=== PATIENT | female | born 1955 | race Caucasian/White ===

== ENCOUNTER 2017-06-01 07:16 | Day surgery (SDC) | payer OTHER ==
[2017-06-01 08:05] VITALS: BMI 34.0
[2017-06-01] MEDS ORDERED: PROPOFOL 20 ML ONE ×5 (08:05)
[2017-06-01] MEDS ORDERED: LIDOCAINE HCL/PF 2% SDV 5ML VIAL ONE (08:05)
[2017-06-01] MEDS ORDERED: ceFAZolin SODIUM 1 GM VIAL ONE (08:22)
[2017-06-01 09:04] VITALS: TEMP 97.5
[2017-06-01 11:31] VITALS: BP 121/70; PULSE 69
--- NOTE | 2017-06-02 13:46 | PATH ---
Surgical Pathology Report Patient Name: PRINCE KELLY [facility]. Rec. #: [id number] /Age/Gender: 1955 (Age: 61) / F Account: [id number] Location: [facility]-ENDOSCOPY Taken: 06/01/2017 Received: 06/01/2017 Reported: 06/02/2017 Physicians: Oxana Lozano M.D. Specimen(s) Received A: SIGMOID POLYP B: BX RECTAL POLYP Clinical History FREGOSO cirrhosis; history of colon polyp Esophageal vessels, duodenal ulcer, portal gastropathy, diverticulosis, colon polyps Final Diagnosis A. COLON, SIGMOID, POLYP, POLYPECTOMY: HYPERPLASTIC POLYP WITH CAUTERY ARTIFACT. B. RECTUM, POLYP, BIOPSY: HYPERPLASTIC POLYP WITH SERRATED ARCHITECTURE AND FOCAL FEATURES OF MUCOSAL PROLAPSE. Electronically Signed Seth Mclaughlin M.D. Gross Description A. Received in formalin, labeled "hot snare-sigmoid polyp" is a single fragment of brownlee tissue 0.2 cm in greatest dimension. Submitted entirely in one cassette. B. Received in formalin, labeled "biopsy rectal polyp" is a single fragment of brownlee tissue 0.4 cm in greatest dimension. submitted entirely in one cassette. AF/06/01/2017 final/06/01/2017
== END 2017-06-01 11:31 | disposition home or self-care (01) ==
LOC: JASU-ENDO 07:16
PROVIDERS: ATTEND Internal Medicine Gastroenterology
PROC: 0DBP8ZX Excision of Rectum, Via Natural or Artificial Opening Endoscopic, Diagnostic (ICD-10-PCS; 2017-06-01)
PROC: 0DJ08ZZ Inspection of Upper Intestinal Tract, Via Natural or Artificial Opening Endoscopic (ICD-10-PCS; 2017-06-01)
PROC: 0DBN8ZX Excision of Sigmoid Colon, Via Natural or Artificial Opening Endoscopic, Diagnostic (ICD-10-PCS; principal; 2017-06-01 08:00)
DX: Z86.010 Personal history of colon polyps (principal); D12.5 Benign neoplasm of sigmoid colon; K62.1 Rectal polyp; K57.30 Diverticulosis of large intestine without perforation or abscess without bleeding; K64.8 Other hemorrhoids; I85.00 Esophageal varices without bleeding; K76.6 Portal hypertension; K31.89 Other diseases of stomach and duodenum; K26.9 Duodenal ulcer, unspecified as acute or chronic, without hemorrhage or perforation; K31.7 Polyp of stomach and duodenum
CPT/HCPCS: 88305-TC

== ENCOUNTER 2018-09-24 06:04 | Day surgery (SDC) | payer OTHER ==
[2018-09-23 11:28] VITALS: BMI 35.3
[2018-09-24] MEDS ORDERED: EPINEPHrine 1:1,000 1 MG/1 ML - 30ML VIAL (INJECTION) ONE (07:11)
[2018-09-24] MEDS ORDERED: BUPIVACAINE HCL/PF 2.5 MG/ML - 30 ML VIAL IJ ONE (07:11)
[2018-09-24] MEDS ORDERED: PROPOFOL 20 ML ONE ×2 (07:16)
[2018-09-24] MEDS ORDERED: MIDAZOLAM HCL 2 MG/2 ML SINGLE DOSE VIAL ONE (07:16)
[2018-09-24] MEDS ORDERED: LIDOCAINE HCL/PF 2% SDV 5ML VIAL ONE (07:16)
[2018-09-24] MEDS ORDERED: SUCCINYLCHOLINE CHLORIDE 200 MG/10 ML VIAL ONE (07:16)
[2018-09-24] MEDS ORDERED: DESFLURANE GAS 240 ML BOTTLE IH ONE (07:18)
[2018-09-24] MEDS ORDERED: SEVOFLURANE 250 ML BTL ONE (08:20)
[2018-09-24] MEDS ORDERED: PROMETHAZINE HCL 25 MG/1 ML VIAL IVPUSH PRN (09:01)
[2018-09-24] MEDS ORDERED: oxyCODONE HCL 5 MG TABLET PO PRN (09:01)
[2018-09-24] MEDS ORDERED: ONDANSETRON 4 MG/2 ML VIAL IVPUSH PRN (09:01)
[2018-09-24] MEDS ORDERED: LACTATED RINGERS SOLUTION 1,000 ML IV SCH (09:15)
[2018-09-24 10:40] VITALS: PULSE 70; TEMP 97.8
[2018-09-24 11:52] VITALS: BP 140/80
--- NOTE | 2018-09-26 11:59 | OP ---
DATE OF OPERATION: 09/24/2018 SURGEON: Tyree Alberto MD SENIOR SALES CONSULTANT: SUE Espinoza PREOPERATIVE DIAGNOSES: 1. Right knee medial and lateral meniscal tear. 2. Right knee cartilage injury. 3. Right knee synovitis. POSTOPERATIVE DIAGNOSES: 1. Right knee medial and lateral meniscal tear. 2. Right knee cartilage injury. 3. Right knee synovitis. PROCEDURE: 1. Right knee arthroscopy with partial meniscectomy, medial and lateral meniscus; CPT code 45955. 2. Right knee arthroscopy with chondroplasty and abrasionplasty; CPT code 53786. 3. Right knee arthroscopy with synovectomy; CPT code 83791. FINDINGS: 1. Medial meniscus with body and posterior horn tear. 2. Lateral meniscus with posterior 1/3 tear with extensive complex tearing. 3. Synovitis of the patellofemoral and medial and lateral notch areas. 4. Grade 2 to 3 cartilage injury of the medial and tibial plateau. 5. ACL and PCL intact. 6. Diffuse grade 2 to 4 cartilage injury of the lateral femoral condyle and tibial plateau. 7. Diffuse grade 2 to 4 cartilage injury of the patellofemoral trochlea. PROCEDURE: Informed consent was obtained. The patient came to the operating room, where the lower extremity was prepped and draped in a sterile fashion. A tourniquet was placed on the upper thigh, but not inflated. Using standard arthroscopic technique, a lateral incision and portal was made to allow for introduction of the camera into the suprapatellar bursa. This was then taken to the medial joint line, where under direct visualization, a medial incision and portal was made. Excessive synovium noted in the medial, lateral and patellofemoral and notch area was removed by an upbiter, shaver and Bovie cautery. This was found to bring in inflammatory tissue into the joint surface, a source of pain and dysfunction. Probing of the medial and lateral meniscus found tears, as described in the findings. These were removed with the upbiter and shaver and taken back to a stable rim. Grade 2 to 3 degenerative changes were treated with a chondroplasty, removing all flaking surfaces with low-setting Bovie along the periphery to prevent further flaking. Grade 4 changes, as noted, were treated with an abrasionplasty, creating a bleeding surface at the bone/cartilage interface. Aggressive debridement with shaver/kalen created bleeding surface. Micro fracture also done when indicated in findings. All areas of the knee were once again reexamined. The knee was then drained and a single suture was placed in all portals. A sterile dressing was placed and the patient was transferred to the recovery room without complication. TYREE ALBERTO M.D. [id number]
--- NOTE | 2018-10-01 12:11 | PATH ---
Surgical Pathology Report Patient Name: PRINCE KELLY [facility]. Rec. #: [id number] /Age/Gender: 1955 (Age: 63) / F Account: [id number] Location: [facility] Taken: 09/24/2018 Received: 09/24/2018 Reported: 10/01/2018 Physicians: Tyree Bains M.D. Specimen(s) Received RIGHT KNEE SHAVINGS Clinical History Right knee arthritis Final Diagnosis Knee, right, arthroscopic shavings: Fibrosynovial tissue, fibrocollagenous tissue and cartilage. Electronically Signed Spring Richardson M.D. Gross Description Received in formalin, labeled "right knee shavings," is a 4.5 x 4.3 x 0.4 cm. aggregate of brownlee-yellow soft tissue fragments. A school admissions representative portion is submitted in one cassette. /09/24/201809/24/2018
== END 2018-09-24 11:45 | disposition home or self-care (01) ==
LOC: FASU 06:04
PROVIDERS: ATTEND Orthopaedic Surgery
PROC: 0SBC4ZZ Excision of Right Knee Joint, Percutaneous Endoscopic Approach (ICD-10-PCS; 2018-09-24)
PROC: 0SBC4ZZ Excision of Right Knee Joint, Percutaneous Endoscopic Approach (ICD-10-PCS; 2018-09-24)
PROC: 0SBC4ZZ Excision of Right Knee Joint, Percutaneous Endoscopic Approach (ICD-10-PCS; principal; 2018-09-24 07:30)
DX: S83.241A Other tear of medial meniscus, current injury, right knee, initial encounter (principal); S83.281A Other tear of lateral meniscus, current injury, right knee, initial encounter; S83.8X1A Sprain of other specified parts of right knee, initial encounter; M65.861 Other synovitis and tenosynovitis, right lower leg; X58.XXXA Exposure to other specified factors, initial encounter; Y93.9 Activity, unspecified; Y92.9 Unspecified place or not applicable
CPT/HCPCS: 82962; 88304-TC; 94760

== ENCOUNTER 2019-08-01 07:04 | Day surgery (SDC) | payer OTHER ==
[2019-08-01 07:58] VITALS: BMI 33.6
[2019-08-01 09:19] VITALS: TEMP 97.6
[2019-08-01 09:20] VITALS: PULSE 71
[2019-08-01 09:37] VITALS: BP 129/74
--- NOTE | 2019-08-02 17:22 | PATH ---
Surgical Pathology Report Patient Name: PRINCE KELLY [facility]. Rec. #: [id number] /Age/Gender: 1955 (Age: 64) / F Account: [id number] Location: U-ENDOSCOPY Taken: 08/01/2019 Received: 08/01/2019 Reported: 08/02/2019 Physicians: Oxana Lozano M.D. Specimen(s) Received A: TRANSVERSE COLON POLYP B: CECAL POLYP Clinical History Varices, adenoma surveillance Postoperative diagnosis: Portal gastropathy, colon polyp, diverticulosis Final Diagnosis A. TRANSVERSE COLON, POLYP, BIOPSY: HYPERPLASTIC POLYP. B. CECAL POLYP, BIOPSY: TUBULAR ADENOMA. Electronically Signed Arabella Torres M.D. Gross Description A. Received in formalin, labeled "transverse colon polyp" is a brownlee, irregular portion of soft tissue measuring 0.2 cm. in greatest dimension. The specimen is submitted in toto in one cassette. B. Received in formalin, labeled "cecal polyp" are 4 brownlee, irregular portions of soft tissue measuring 0.1 and 0.2 cm. in greatest dimension. The specimens are submitted in toto in one cassette. MLSZ/08/01/2019 sanml/08/01/2019
== END 2019-08-01 10:02 | disposition home or self-care (01) ==
LOC: JASU-ENDO 07:04
PROVIDERS: ATTEND Internal Medicine Gastroenterology
PROC: 0DBL8ZX Excision of Transverse Colon, Via Natural or Artificial Opening Endoscopic, Diagnostic (ICD-10-PCS; 2019-08-01)
PROC: 0DJ08ZZ Inspection of Upper Intestinal Tract, Via Natural or Artificial Opening Endoscopic (ICD-10-PCS; 2019-08-01)
PROC: 0DBH8ZX Excision of Cecum, Via Natural or Artificial Opening Endoscopic, Diagnostic (ICD-10-PCS; principal; 2019-08-01 08:00)
DX: Z12.11 Encounter for screening for malignant neoplasm of colon (principal); Z86.010 Personal history of colon polyps; D12.0 Benign neoplasm of cecum; D12.3 Benign neoplasm of transverse colon; K64.8 Other hemorrhoids; K57.30 Diverticulosis of large intestine without perforation or abscess without bleeding; K31.7 Polyp of stomach and duodenum; K76.6 Portal hypertension; K31.89 Other diseases of stomach and duodenum; D64.9 Anemia, unspecified; E66.9 Obesity, unspecified; I10 Essential (primary) hypertension
CPT/HCPCS: 82962; 88305-TC

== ENCOUNTER 2019-09-15 20:06 | Emergency (ER) | payer OTHER ==
--- NOTE | 2019-09-15 20:21 | PDOC ---
Rapid Medical Evaluation Chief Complaint: Weakness Time Seen by Provider: 09/15/19 20:16 Medical Evaluation: Allergies Allergy/AdvReac Type Severity Reaction Status Date / Time celecoxib [From Celebrex] Allergy Rash Verified 09/23/18 11:11 DUST Allergy Uncoded 09/23/18 11:11 SEASONAL Allergy Uncoded 09/23/18 11:11 09/15/19 20:17 I have performed a brief in-person evaluation of this patient. The patient presents with a chief complaint of:feeling faint with Hx of Hepatic encephalopathy, sent by Dr Mccormack Pertinent physical exam findings: pale, alert but easily I have ordered the following: CBC, CMP, PT,INR The patient will proceed to the ED for further evaluation.
[2019-09-15 20:22] VITALS: BMI 34.2
--- NOTE | 2019-09-15 20:38 | PDOC ---
History of Present Illness - General Chief Complaint: Weakness Stated Complaint: WEAKNESS Time Seen by Provider: 09/15/19 20:16 - History of Present Illness Initial Comments: 09/15/19 20:38 64 y/o female with a h/o DM, HTN, hyperlipidemia, esophageal varices, alcoholic cirrhosis, FREGOSO, HLD, hepatic encephalopathy who presents with 2 weeks of cough productive of clear phlegm, lightheadedness and weakness. She denies fever, nausea, vomiting, abdominal pain, diarrhea, constipation, dysuria, hematuria or any other complaints. She was seen by her PCP who gave her amoxicillin, promethazine, inhaler 4 days ago but she reports that her symptoms have not resovled. She has no other complaints. The patient also reports that she stopped taking her lasix 1 week ago because her legs became less swollen. patient reports that she almost fainted today while going into the elevator ROS GENERAL/CONSTITUTIONAL: No fever or chills. No weakness. CARDIOVASCULAR: No chest pain or shortness of breath RESPIRATORY: + cough, wheezing, or hemoptysis. GASTROINTESTINAL: No nausea, vomiting, diarrhea or constipation. GENITOURINARY: No dysuria, frequency, or change in urination. MUSCULOSKELETAL: No joint or muscle swelling or pain. No neck or back pain. SKIN: No rash PE GENERAL: Awake, alert, and fully oriented, in no acute distress HEAD: No signs of trauma, normocephalic, atraumatic EYES: EOMI, sclera anicteric, conjunctiva clear ENT: oropharynx clear without exudates. dry mucosa NECK: Normal ROM, supple LUNGS: No distress, speaks full sentences, clear to auscultation bilaterally HEART: Regular rate and rhythm, normal S1 and S2, no murmurs, rubs or gallops, peripheral pulses normal and equal bilaterally. ABDOMEN: Soft, nontender. No guarding, no rebound. No masses EXTREMITIES : Normal inspection, Normal range of motion, 2+ pitting edema below the knees. No clubbing or cyanosis. NEUROLOGICAL: Cranial nerves II through XII grossly intact. Normal speech, no focal sensorimotor deficits SKIN: Warm, Dry, normal turgor, no rashes or lesions noted MDM DDX including but not limited to: r/o infectious vs electrolyte derangement chf exacerbation r/o acs W/U: - cbc, cmp, bnp, ammonia, ekg, cxr ED Course: labs with elevated ammonia ekg: nsr at 66bpm with t wave inversion in v1, avr Patient reports that she takes lasix twice a week she does not have a history of chf, likely used for leg swelling leg swelling most likely 2/2 dec albumin from liver cirrhosis patient with negative trop possible pre-synceop patient evaluated by inpatient team felt patient can be discharged after fluid rescuc with outpatient follow up will d/c given f/u instructions and strict return precautions Fani Chang, PGY2 Emergency Medicine Past History - Past Medical History Allergies/Adverse Reactions: Allergies Allergy/AdvReac Type Severity Reaction Status Date / Time celecoxib [From Celebrex] Allergy Rash Verified 09/15/19 20:22 DUST Allergy Uncoded 09/15/19 20:22 SEASONAL Allergy Uncoded 09/15/19 20:22 Home Medications: Ambulatory Orders Simvastatin [Zocor -] 10 mg PO TID 10/29/13 metFORMIN HCL [Glucophage] 1,000 mg PO HS 10/29/13 Ferrous Sulfate [Feosol] 325 mg PO BID #0 ud 11/02/13 Calcium Carbonate [Calcium] 600 mg PO DAILY 04/18/14 Lactobacillus Acidophilus [Acidophilus] 1 tab PO DAILY 04/18/14 Propranolol HCl 20 mg PO BID 04/19/14 Ascorbic Acid [Vitamin C -] 500 mg PO BID 08/02/14 Acetaminophen [Tylenol] 325 mg PO QID PRN 10/27/14 Glyburide [Micronase -] 5 mg PO BID 10/27/14 Saxagliptin HCl [Onglyza] 2.5 mg PO DAILY 12/25/14 Pantoprazole Sodium [Protonix -] 40 mg PO DAILY #30 tablet.ec 06/01/17 Rifaximin [Xifaxan] 550 mg PO BID 09/23/18 Alprazolam [Xanax] 0.25 mg PO PRN PRN 08/01/19 Albuterol Sulfate Inhaler - [Ventolin Hfa Inhaler -] 1 - 2 inh PO QID PRN Amoxicillin - [Amoxicillin 500mg Capsule -] 500 mg PO TID 09/15/19 Benzonatate [Tessalon Pearls -] 100 mg PO TID 09/15/19 Promethazine HCl [Phenergan Liquid -] 5 ml PO TID 09/15/19 Anemia: Yes (tx with Iron infusion) Asthma: No Cancer: No Cardiac Disorders: No CVA: No COPD: No CHF: No Dementia: No Diabetes: Yes (NIDDM) GI Disorders: Yes (COLON POLYPS, ESOPHAGEAL VARICES, PORTAL GASTROPATHY, ULCER) Disorders: No HTN: Yes Hypercholesterolemia: Yes Liver Disease: Yes (FREGOSO CIRRHOSIS) Seizures: No Thyroid Disease: No - Surgical History Abdominal Surgery: No Appendectomy: No Cardiac Surgery: No Cholecystectomy: No Lung Surgery: No Neurologic Surgery: No Orthopedic Surgery: Yes (RT TIBIA/FIBULA FX) - Psycho Social/Smoking Cessation Hx Smoking History: Former smoker Have you smoked in the past 12 months: No If you are a former smoker, when did you quit?: 1971 Information on smoking cessation initiated: No Hx Alcohol Use: No Drug/Substance Use Hx: No Substance Use Type: None Hx Substance Use Treatment: No *Physical Exam - Vital Signs Last Vital Signs Temp Pulse Resp BP Pulse Ox 98.7 F 68 21 H 137/71 99 09/15/19 20:17 09/15/19 20:17 09/15/19 20:17 09/15/19 20:17 09/15/19 20:17 ED Treatment Course - LABORATORY CBC & Chemistry Diagram: 09/15/19 21:05 09/15/19 21:05 Discharge - Discharge Information Problems reviewed: Yes Clinical Impression/Diagnosis: Dehydration Condition: Fair Disposition: HOME - Admission No - Follow up/Referral Referrals: Kwesi Banks MD [Primary Care Provider] - - Patient Discharge Instructions Patient Printed Discharge Instructions: DI for Dehydration -- Adult Additional Instructions: You were seen in the ED for weakness and cough Your labwork and imaging was largely unremarkable You should stop take promethazine Follow up with your Family Doctor Take plenty of liquids Return to the ED if you have worsening shortness of breath, fevers or any other concerning symptoms. - Post Discharge Activity
[2019-09-15] MEDS ORDERED: FUROSEMIDE 40 MG/4 ML INJECTABLE VIAL IVPUSH ONE (21:15)
[2019-09-15 21:24] LABS: BASO % 0.5 % (0-2.0); EOS % 4.9 % (0-4.5); HEMATOCRIT 41.5 % (32.4-45.2); HEMOGLOBIN 13.9 GM/dL (10.7-15.3); LYMPH % 21.7 % (8-40); MCH 32.8 pg (25.7-33.7); MCHC 33.6 g/dl (32.0-36.0); MEAN CELL VOLUME 97.8 fl (80-96); MEAN PLT VOLUME 8.7 fl (7.5-11.1); MONO % 12.4 % (3.8-10.2); NEUT % 60.5 % (42.8-82.8); PLATELET COUNT 66 K/MM3 (134-434); RBC 4.25 M/mm3 (3.60-5.2); RDW 14.7 % (11.6-15.6); WHITE BLOOD COUNT 4.9 K/mm3 (4.0-10.0)
[2019-09-15 21:37] LABS: INR 1.2 (0.83-1.09); PROTHROMBIN TIME (PATIENT) 14.2 SEC (9.7-13.0)
[2019-09-15 21:40] LABS: ACTIVATED PTT 34.7 SECONDS (25.2-36.5)
[2019-09-15] MEDS ORDERED: FUROSEMIDE 40 MG/4 ML INJECTABLE VIAL ONE (21:50)
[2019-09-15 21:52] LABS: ALBUMIN 3.2 g/dl (3.4-5.0); ALK PHOS 154 U/L (45-117); ANION GAP 5 MMOL/L (8-16); BILIRUBIN,TOTAL 1.2 mg/dL (0.2-1); CHLORIDE 110 mmol/L (98-107); CO2 28 mmol/L (21-32); CREATININE 0.7 mg/dL (0.55-1.3); GLUCOSE,RANDOM 132 mg/dL (74-106); LIPASE 276 U/L (73-393); POTASSIUM 3.7 mmol/L (3.5-5.1); SGOT/AST 46 U/L (15-37); SGPT/ALT 38 U/L (13-61); SODIUM 143 mmol/L (136-145); TOT PROT 7.1 g/dl (6.4-8.2)
[2019-09-15 22:54] LABS: N-TERMINAL BNP 85.9 pg/ml (5-125)
--- NOTE | 2019-09-15 23:19 | PDOC ---
Attending Attestation - Resident Resident Name: Fani Chang - ED Attending Attestation I have performed the following: I have examined & evaluated the patient, The case was reviewed & discussed with the resident, I agree w/resident's findings & plan, Exceptions are as noted - HPI HPI: 09/15/19 23:14 64 yo F h/o cirrhosis, esophageal varices, hepatic encephalopathy, htn dm here wtih c/o generalized weakness, cough, and nasal congestion for 2 weeks. pt states she was seen by her primary doctor and started amoxicillin , inhaler, and promethazine 3 days ago. cough nonproductive. today she was getting out of car and suddenly felt weak, like was about to faint, and legs were weak. no f/c no improvement on abx. no cp is on lasix for leg swelling. noted dry mouth. no n/v. works as teacher in a preschool - Physicial Exam PE: 09/15/19 23:18 awake alert dry mucous membranes. lungs clear no wheeze no crackles. heart rrr no mrg abd soft nt nd ext wwp. bilat pitting edema. 2+ alert oriented x 3. no assterixis. - Medical Decision Making 09/15/19 23:19 64 yo F h/o encephalopathy, cirrhoiss, variceas. on abx for bronchitis here with fatigue persistant cough x 2 weeks and near syncopal episode. differential anemia, gi bleed, electrolyte abnormality. se of promethazine, renal failure. pneumonia. plan cxr labs ekg, trop pt ammonia elevated. labs otherwise unremarkable. ekg normal no st elevation or ddepression. left axis. 09/16/19 01:36 pt was given ivf. d/w patient regarding admission for near syncope concerns for intravascular dehydration. pt has been on lasix recently for leg edema. d/w admitting team. DR Laguerre evaluated pt in ed. disagree with admission. will dc home and fu pcp. Heart Score/ECG Review #1 General ECG Interpretation: Sinus Rhythm, Normal Rate (66), Normal Intervals, No acute ischemic changes (66) Compared to previous ECG there are: Other (left axis.)
[2019-09-16] MEDS ORDERED: SODIUM CHLORIDE 0.9% 1000 ML INFUS.BAG IV ONE (00:29)
[2019-09-16 01:27] LABS: URINE APPEARANCE CLEAR; URINE BILIRUBIN NEGATIVE (NEGATIVE); URINE COLOR YELLOW; URINE GLUCOSE (UA) NEGATIVE (NEGATIVE); URINE KETONE NEGATIVE (NEGATIVE); URINE LEUK ESTERASE NEGATIVE (NEGATIVE); URINE NITRITE NEGATIVE (NEGATIVE); URINE PROTEIN NEGATIVE (NEGATIVE)
--- NOTE | 2019-09-16 01:36 | CONSULT ---
Consultation: REQUESTING PROVIDER: Dr Hughes CONSULT REQUEST: We have been asked to medically evaluate this patient for ( specify). HISTORY OF PRESENT ILLNESS: 64 y/o female with a h/o DM, HTN, hyperlipidemia, esophageal varices, alcoholic cirrhosis, FREGOSO, HLD, hepatic encephalopathy who presents with 2 weeks of cough productive of clear phlegm, lightheadedness and weakness. She denies headache, dizziness,LOC, fever, nausea, vomiting, abdominal pain, diarrhea, constipation, dysuria, hematuria or any other complaints. She was seen by her PCP who gave her amoxicillin, promethazine, inhaler 4 days ago but she reports that her symptoms mildly improved. Pt did stop using her lasix week or so ago as her leg swelling had improved and she was urinating too frequently. REVIEW OF SYSTEMS: CONSTITUTIONAL: malaise Absent: fever, chills, diaphoresis, generalized weakness, loss of appetite, weight change HEENT: Absent: rhinorrhea, nasal congestion, throat pain, throat swelling, difficulty swallowing, mouth swelling, ear pain, eye pain, visual changes CARDIOVASCULAR: Absent: chest pain, syncope, palpitations, irregular heart rate, lightheadedness , peripheral edema RESPIRATORY: cough productive of clear sputum Absent: shortness of breath, dyspnea with exertion, orthopnea, wheezing, stridor , hemoptysis GASTROINTESTINAL: Absent: abdominal pain, abdominal distension, nausea, vomiting, diarrhea, constipation, melena, hematochezia GENITOURINARY: Absent: dysuria, frequency, urgency, hesitancy, hematuria, flank pain, genital pain MUSCULOSKELETAL: Absent: myalgia, arthralgia, joint swelling, back pain, neck pain SKIN: Absent: rash, itching, pallor HEMATOLOGIC/IMMUNOLOGIC: Absent: easy bleeding, easy bruising, lymphadenopathy, frequent infections ENDOCRINE: Absent: unexplained weight gain, unexplained weight loss, heat intolerance, cold intolerance NEUROLOGIC: Absent: headache, focal weakness or paresthesias, dizziness, unsteady gait, seizure, mental status changes, bladder or bowel incontinence PSYCHIATRIC: Absent: anxiety, depression, suicidal or homicidal ideation, hallucinations. PHYSICAL EXAMINATION Vital Signs - 24 hr 09/15/19 09/15/19 20:17 21:05 Temperature 98.7 F Pulse Rate 68 Respiratory 21 H Rate Blood Pressure 137/71 O2 Sat by Pulse 99 99 Oximetry (%) GENERAL: Awake, alert, and fully oriented, in no acute distress. HEAD: Normal with no signs of trauma. EYES: Pupils equal, round and reactive to light, extraocular movements intact, sclera anicteric, conjunctiva clear. No lid lag. EARS, NOSE, THROAT: oropharynx clear without exudates. dry mucous membranes. NECK: Normal range of motion, supple without lymphadenopathy, JVD, or masses. LUNGS: Breath sounds equal, clear to auscultation bilaterally. No wheezes, and no crackles. No accessory muscle use. HEART: Regular rate and rhythm, normal S1 and S2 without murmur, rub or gallop. ABDOMEN: Soft, nontender, not distended, normoactive bowel sounds, no guarding, no rebound, no masses. No hepatomegaly or splenomegaly. LOWER EXTREMITIES: 2+ pulses, warm, well-perfused. No calf tenderness. peripheral edema. PSYCHIATRIC: Cooperative. Good eye contact. Appropriate mood and affect. SKIN: Warm, dry, normal turgor, venous stasis skin changes Laboratory Results - last 24 hr 09/15/19 09/15/19 09/15/19 21:05 21:05 21:05 WBC 4.9 RBC 4.25 Hgb 13.9 Hct 41.5 D MCV 97.8 H MCH 32.8 D MCHC 33.6 RDW 14.7 D Plt Count 66 L D MPV 8.7 Absolute Neuts (auto) 2.9 Neutrophils % 60.5 Lymphocytes % 21.7 D Monocytes % 12.4 H Eosinophils % 4.9 H D Basophils % 0.5 Nucleated RBC % 0 PT with INR 14.20 H INR 1.20 H PTT (Actin FS) 34.7 Sodium 143 Potassium 3.7 Chloride 110 H Carbon Dioxide 28 Anion Gap 5 L BUN 15.0 Creatinine 0.7 Est GFR (CKD-EPI)AfAm 105.38 Est GFR (CKD-EPI)NonAf 90.92 Random Glucose 132 H Calcium 9.0 Total Bilirubin 1.2 H AST 46 H ALT 38 Alkaline Phosphatase 154 H Ammonia Troponin I < 0.02 B-Natriuretic Peptide 85.9 Total Protein 7.1 Albumin 3.2 L Lipase 276 Urine Color Urine Appearance Urine pH Ur Specific [place] Urine Protein Urine Glucose (UA) Urine Ketones Urine Blood Urine Nitrite Urine Bilirubin Urine Urobilinogen Ur Leukocyte Esterase 09/15/19 09/16/19 21:05 01:05 WBC RBC Hgb Hct MCV MCH MCHC RDW Plt Count MPV Absolute Neuts (auto) Neutrophils % Lymphocytes % Monocytes % Eosinophils % Basophils % Nucleated RBC % PT with INR INR PTT (Actin FS) Sodium Potassium Chloride Carbon Dioxide Anion Gap BUN Creatinine Est GFR (CKD-EPI)AfAm Est GFR (CKD-EPI)NonAf Random Glucose Calcium Total Bilirubin AST ALT Alkaline Phosphatase Ammonia 62.10 H Troponin I B-Natriuretic Peptide Total Protein Albumin Lipase Urine Color Yellow Urine Appearance Clear Urine pH 7.0 Ur Specific [place] 1.007 L Urine Protein Negative Urine Glucose (UA) Negative Urine Ketones Negative Urine Blood Negative Urine Nitrite Negative Urine Bilirubin Negative Urine Urobilinogen 1.0 Ur Leukocyte Esterase Negative ASSESSMENT/PLAN: 64 y/o female with a h/o DM, HTN, hyperlipidemia, esophageal varices, alcoholic cirrhosis, FREGOSO, HLD, hepatic encephalopathy who presents with 2 weeks of cough productive of clear phlegm, lightheadedness and weakness. Patient ambulating without difficulty in the ED. AAOx3. back to her baseline according to patient. Labs and imaging were reviewed EKG was unremarkable Pt showed signs of dehydration on physical exam and lightheadedness seemed to be orthostatic in origin; will give one liter of NS and patient can be discharged home with close follow up with her PCP and to return if her symptoms recur or syncope Visit type - Emergency Visit Emergency Visit: Yes Care time: The patient presented to the Emergency Department on the above date and was hospitalized for further evaluation of their emergent condition. - New Patient This patient is new to me today: Yes Date on this admission: 09/16/19 - Critical Care Critical Care patient: No ATTENDING PHYSICIAN STATEMENT I saw and evaluated the patient. I reviewed the resident's note and discussed the case with the resident. I agree with the resident's findings and plan as documented. SUBJECTIVE: OBJECTIVE: ASSESSMENT AND PLAN:
--- NOTE | 2019-09-16 02:04 | PN ---
Teaching Attending Note Name of Resident: Brandee Conti ATTENDING PHYSICIAN STATEMENT I saw and evaluated the patient. I reviewed the resident's note and discussed the case with the resident. I agree with the resident's findings and plan as documented. 64-year-old woman with a history of cirrhosis, esophageal varices, diabetes, hypertension had episode of lightheadedness when attempting to stand up earlier on 09/15. There is no LOC. Denied significant headaches. Complain also of some dry cough which has responded slightly to amoxicillin that her PCP prescribed her. Patient complained of vivid dreams while she was sleeping. She was found to be ambulating around the emergency room without any problems. She is alert and oriented and gives a good history. Glucose and electrolytes were within normal limits. EKG was noted to have sinus rhythm without any arrhythmias. Chest x-ray appeared clear. Lungs were clear to auscultation bilaterally. Suspect orthostatic component. Patient is receiving gentle IV fluid hydration in the emergency room, suggested p.o. hydration at home as she was likely intravascularly depleted. At this time I believe patient is safe for discharge home with early follow-up with PCP. I advised patient to return immediately to hospital if syncope episode or altered mental status occurs. She verbalized understanding and agreed
[2019-09-16 02:51] VITALS: BP 134/86; PULSE 66; TEMP 98.6
--- NOTE | 2019-09-16 13:56 | EKG ---
Test Reason : Blood Pressure : / mmHG Vent. Rate : 066 BPM Atrial Rate : 066 BPM P-R Int : 138 ms QRS Dur : 094 ms QT Int : 440 ms P-R-T Axes : 059 -15 047 degrees QTc Int : 461 ms NORMAL SINUS RHYTHM POSSIBLE LEFT ATRIAL ENLARGEMENT NON-SPECIFIC INTRA-VENTRICULAR CONDUCTION DELAY ABNORMAL ECG Confirmed by JOSELIN SON MD ([id number]) on 09/16/2019 1:56:19 PM Referred By: Confirmed By:JOSELIN SON MD
== END 2019-09-16 02:52 | disposition home or self-care (01) ==
LOC: JER 20:06
PROC: 3E033GC Introduction of Other Therapeutic Substance into Peripheral Vein, Percutaneous Approach (ICD-10-PCS; principal; 2019-09-15)
DX: E86.0 Dehydration (principal); I10 Essential (primary) hypertension; E11.9 Type 2 diabetes mellitus without complications; E78.5 Hyperlipidemia, unspecified; Z79.84 Long term (current) use of oral hypoglycemic drugs; K75.81 Nonalcoholic steatohepatitis (NASH); K74.60 Unspecified cirrhosis of liver; D64.9 Anemia, unspecified; R60.0 Localized edema; Z87.19 Personal history of other diseases of the digestive system; Z88.8 Allergy status to other drugs, medicaments and biological substances; Z91.048 Other nonmedicinal substance allergy status
CPT/HCPCS: 36415; 71046-TC-FY; 80053; 81003; 82140; 83690; 83880; 84484; 85025; 85610; 85730; 87086; 87186; 93005; 93010; 99284-25; J7030

== ENCOUNTER 2023-03-16 15:06 | Inpatient (IN) | payer OTHER, MEDICARE ==
[2023-03-16] MEDS ORDERED: CEFEPIME HCL/D5W 1 GM/50 ML BAG IVPB ONE (15:53)
[2023-03-16] MEDS ORDERED: VANCOMYCIN 1 GM in D5W (PRE-DOCKED) 1,000 MG/250 ML (RESTRICTED TO ID ONLY IVPB ONE (15:57)
[2023-03-16 16:34] LABS: BASO % 0.5 % (0-2.0); EOS % 6.3 % (0-4.5); HEMOGLOBIN 15.1 GM/dL (10.7-15.3); LYMPH % 17.2 % (8-40); MCH 35.6 pg (25.7-33.7); MCHC 35.2 g/dl (32.0-36.0); MEAN CELL VOLUME 101.3 fl (80-96); MEAN PLT VOLUME 9.1 fl (7.5-11.1); MONO % 11.1 % (3.8-10.2); NEUT % 64.9 % (42.8-82.8); PLATELET COUNT 61 10^3/uL (134-434); RBC 4.25 M/mm3 (3.60-5.2); RDW 15.6 % (11.6-15.6); WHITE BLOOD COUNT 5.8 K/mm3 (4.0-10.0)
[2023-03-16] MEDS ORDERED: CEFEPIME 1 GM/100 ML BAG IVPB ONE (16:41)
[2023-03-16] MEDS ORDERED: VANCOMYCIN/WATER FOR INJ (PEG) 1,000 MG/200 ML BAG IVPB ONE (16:41)
[2023-03-16 17:24] LABS: ERYTHROCYTE SEDIMENTATION RATE 14 mm/hr (0-30)
[2023-03-16 19:52] LABS: CHLORIDE 110 mmol/L (98-107); SODIUM 130 mmol/L (136-145)
[2023-03-16 19:53] LABS: CALCIUM 8.7 mg/dL (8.5-10.1)
[2023-03-16 19:54] LABS: BLOOD UREA NITROGEN 21.1 mg/dL (7-18); CO2 27 mmol/L (21-32); GLUCOSE,RANDOM 136 mg/dL (74-106)
[2023-03-16 19:57] LABS: CREATININE 0.9 mg/dL (0.55-1.3)
[2023-03-16 19:59] LABS: BILIRUBIN,TOTAL 1.3 mg/dL (0.2-1); TOT PROT 7.8 g/dl (6.4-8.2)
[2023-03-16 20:00] LABS: ALK PHOS 177 U/L (45-117)
[2023-03-16 21:53] LABS: POTASSIUM 4.4 mmol/L (3.5-5.1)
[2023-03-16 21:55] LABS: BLOOD UREA NITROGEN 19.3 mg/dL (7-18); CALCIUM 8.9 mg/dL (8.5-10.1)
[2023-03-16 21:58] LABS: CREATININE 0.8 mg/dL (0.55-1.3)
[2023-03-17] MEDS: CLINDAMYCIN 600MG PREMIX IVPB 600 MG/50 ML BAG IVPB SCH ×2 (03:06→11:00)
[2023-03-17 05:38] VITALS: BMI 37.3
[2023-03-17] MEDS: INSULIN SLIDING SCALE (NOVOLOG) 1 VIAL SQ SCH ×4 (06:32→21:59)
[2023-03-17 08:43] LABS: BASO % 0.6 % (0-2.0); EOS % 6.5 % (0-4.5); HEMATOCRIT 38.7 % (32.4-45.2); HEMOGLOBIN 13.6 GM/dL (10.7-15.3); LYMPH % 17.3 % (8-40); MCH 35.5 pg (25.7-33.7); MCHC 35.1 g/dl (32.0-36.0); MEAN CELL VOLUME 101.1 fl (80-96); MEAN PLT VOLUME 8.9 fl (7.5-11.1); MONO % 12.1 % (3.8-10.2); NEUT % 63.5 % (42.8-82.8); PLATELET COUNT 54 10^3/uL (134-434); RBC 3.83 M/mm3 (3.60-5.2); RDW 14.5 % (11.6-15.6); WHITE BLOOD COUNT 4.8 K/mm3 (4.0-10.0)
[2023-03-17 09:03] LABS: POTASSIUM 3.9 mmol/L (3.5-5.1)
[2023-03-17 09:13] LABS: ALBUMIN 2.6 g/dl (3.4-5.0); BLOOD UREA NITROGEN 16.9 mg/dL (7-18); CALCIUM 8.6 mg/dL (8.5-10.1); MAGNESIUM 1.4 mg/dL (1.8-2.4)
[2023-03-17 09:16] LABS: CREATININE 0.7 mg/dL (0.55-1.3); PHOSPHOROUS 3.1 mg/dL (2.5-4.9)
[2023-03-17] MEDS ORDERED: MAGNESIUM SULF 50% (8.12 MEQ/2 ML-1 GM VIAL) IVPB ONE (09:16)
[2023-03-17 09:17] LABS: TOT PROT 5.9 g/dl (6.4-8.2)
[2023-03-17 09:18] LABS: BILIRUBIN,TOTAL 1.8 mg/dL (0.2-1)
[2023-03-17] MEDS: FERROUS SO4 325 MG TABLET (FP) PO SCH (10:08)
[2023-03-17] MEDS: PANTOPRAZOLE 40 MG TABLET PO SCH (10:16)
[2023-03-17] MEDS: ASCORBIC ACID 500 MG TABLET (FP) PO SCH ×2 (10:17→21:58)
[2023-03-17] MEDS: RIFAXIMIN 550 MG TABLET PO SCH ×2 (10:17→21:58)
[2023-03-17] MEDS ORDERED: ACETAMINOPHEN 1000 MG/100 ML BAG IVPB PRN (13:47)
[2023-03-17] MEDS ORDERED: AMPICILLIN NA/SULBACTAM NA 1.5 GM VIAL ONE (14:15)
[2023-03-17] MEDS: ACETAMINOPHEN 325 MG TABLET (FP) PO PRN ×2 (14:20→21:58)
[2023-03-17] MEDS: AMPICILLIN NA/SULBACTAM NA 3 GM in SODIUM CHLORIDE 100 ML IVPB SCH ×2 (14:49→21:57)
[2023-03-17] MEDS ORDERED: AMPICILLIN NA/SULBACTAM NA 1.5 GM in SODIUM CHLORIDE 100 ML IVPB SCH (15:00)
[2023-03-18] MEDS: ATORVASTATIN CA 10 MG TABLET (FP) PO SCH (00:27)
[2023-03-18] MEDS: AMPICILLIN NA/SULBACTAM NA 3 GM in SODIUM CHLORIDE 100 ML IVPB SCH ×4 (03:52→21:06)
[2023-03-18] MEDS ORDERED: glyBURIDE 5 MG TABLET PO SCH (07:00)
[2023-03-18] MEDS ORDERED: SAXAGLIPTIN HCL 2.5 MG PO SCH (07:00)
[2023-03-18] MEDS: INSULIN SLIDING SCALE (NOVOLOG) 1 VIAL SQ SCH (07:55)
[2023-03-18] MEDS ORDERED: AMPICILLIN NA/SULBACTAM NA 1.5 GM VIAL ONE (10:56)
[2023-03-18 11:00] LABS: BASO % 0.7 % (0-2.0); EOS % 6.7 % (0-4.5); HEMATOCRIT 43.1 % (32.4-45.2); HEMOGLOBIN 14.9 GM/dL (10.7-15.3); LYMPH % 15.5 % (8-40); MCH 35.1 pg (25.7-33.7); MCHC 34.6 g/dl (32.0-36.0); MEAN CELL VOLUME 101.3 fl (80-96); MONO % 12.9 % (3.8-10.2); NEUT % 64.2 % (42.8-82.8); PLATELET COUNT 73 10^3/uL (134-434); RBC 4.26 M/mm3 (3.60-5.2); RDW 14.9 % (11.6-15.6); WHITE BLOOD COUNT 5.9 K/mm3 (4.0-10.0)
[2023-03-18] MEDS: ACETAMINOPHEN 325 MG TABLET (FP) PO PRN ×2 (11:03→21:07)
[2023-03-18] MEDS: PANTOPRAZOLE 40 MG TABLET PO SCH (11:04)
[2023-03-18] MEDS: FERROUS SO4 325 MG TABLET (FP) PO SCH (11:04)
[2023-03-18] MEDS: RIFAXIMIN 550 MG TABLET PO SCH ×2 (11:04→21:07)
[2023-03-18 11:10] LABS: POTASSIUM 4.1 mmol/L (3.5-5.1)
[2023-03-18 11:14] LABS: CALCIUM 8.9 mg/dL (8.5-10.1)
[2023-03-18 11:15] LABS: BLOOD UREA NITROGEN 17.6 mg/dL (7-18); MAGNESIUM 1.6 mg/dL (1.8-2.4)
[2023-03-18] MEDS ORDERED: MAGNESIUM SULF 50% (8.12 MEQ/2 ML-1 GM VIAL) IVPB ONE ×2 (11:17→14:45)
[2023-03-18 11:18] LABS: CREATININE 0.7 mg/dL (0.55-1.3); PHOSPHOROUS 3.3 mg/dL (2.5-4.9)
[2023-03-18] MEDS: ASCORBIC ACID 500 MG TABLET (FP) PO SCH ×2 (11:18→21:07)
[2023-03-18 11:19] LABS: TOT PROT 6.8 g/dl (6.4-8.2)
[2023-03-18] MEDS: CHOLECALCIFEROL (VIT D3 5000 UNITS) 125 MCG TAB PO SCH (11:19)
[2023-03-18 11:20] LABS: BILIRUBIN,TOTAL 1.9 mg/dL (0.2-1)
[2023-03-18] MEDS ORDERED: metFORMIN HCL 500 MG TABLET (FP) PO SCH (22:00)
[2023-03-19] MEDS: AMPICILLIN NA/SULBACTAM NA 3 GM in SODIUM CHLORIDE 100 ML IVPB SCH ×4 (02:49→22:53)
[2023-03-19] MEDS: ACETAMINOPHEN 325 MG TABLET (FP) PO PRN ×3 (08:03→22:55)
[2023-03-19] MEDS: FERROUS SO4 325 MG TABLET (FP) PO SCH (09:23)
[2023-03-19] MEDS: RIFAXIMIN 550 MG TABLET PO SCH ×2 (09:23→22:54)
[2023-03-19] MEDS: PANTOPRAZOLE 40 MG TABLET PO SCH (09:23)
[2023-03-19] MEDS: ASCORBIC ACID 500 MG TABLET (FP) PO SCH ×2 (09:23→22:53)
[2023-03-19 10:37] LABS: POTASSIUM 4.4 mmol/L (3.5-5.1)
[2023-03-19 10:41] LABS: CALCIUM 8.4 mg/dL (8.5-10.1)
[2023-03-19 10:42] LABS: ALBUMIN 2.6 g/dl (3.4-5.0); BLOOD UREA NITROGEN 19.1 mg/dL (7-18); MAGNESIUM 1.4 mg/dL (1.8-2.4)
[2023-03-19 10:45] LABS: CREATININE 0.8 mg/dL (0.55-1.3)
[2023-03-19 10:46] LABS: BILIRUBIN,TOTAL 1.5 mg/dL (0.2-1); TOT PROT 6.2 g/dl (6.4-8.2)
[2023-03-19] MEDS ORDERED: MAGNESIUM 2GM/50ML STERILE WATER IVPB IVPB ONE (11:53)
[2023-03-19] MEDS: sitaGLIPtin PHOSPHATE 50 MG TABLET PO SCH (12:33)
[2023-03-19] MEDS ORDERED: SODIUM CHLORIDE 1,000 ML IV SCH (13:45)
[2023-03-20] MEDS: ATORVASTATIN CA 10 MG TABLET (FP) PO SCH (01:49)
[2023-03-20] MEDS: AMPICILLIN NA/SULBACTAM NA 3 GM in SODIUM CHLORIDE 100 ML IVPB SCH ×5 (02:27→23:37)
[2023-03-20] MEDS: sitaGLIPtin PHOSPHATE 50 MG TABLET PO SCH ×2 (06:13→11:45)
[2023-03-20 08:30] LABS: INR 1.17 (0.83-1.09); PROTHROMBIN TIME (PATIENT) 13.6 SEC (9.7-13.0)
[2023-03-20 08:37] LABS: POTASSIUM 4.2 mmol/L (3.5-5.1)
[2023-03-20 08:40] LABS: CALCIUM 8.7 mg/dL (8.5-10.1)
[2023-03-20 08:41] LABS: BLOOD UREA NITROGEN 18.9 mg/dL (7-18); MAGNESIUM 1.6 mg/dL (1.8-2.4)
[2023-03-20 08:44] LABS: CREATININE 0.7 mg/dL (0.55-1.3)
[2023-03-20] MEDS ORDERED: MAGNESIUM SULF 50% (8.12 MEQ/2 ML-1 GM VIAL) IVPB ONE (08:47)
[2023-03-20] MEDS: PANTOPRAZOLE 40 MG TABLET PO SCH (11:28)
[2023-03-20] MEDS: RIFAXIMIN 550 MG TABLET PO SCH ×2 (11:28→21:43)
[2023-03-20] MEDS: ASCORBIC ACID 500 MG TABLET (FP) PO SCH ×2 (11:29→21:43)
[2023-03-20] MEDS: FERROUS SO4 325 MG TABLET (FP) PO SCH (11:29)
[2023-03-20] MEDS: CHOLECALCIFEROL (VIT D3 5000 UNITS) 125 MCG TAB PO SCH (11:31)
[2023-03-20] MEDS: ACETAMINOPHEN 325 MG TABLET (FP) PO PRN (11:45)
[2023-03-20] MEDS ORDERED: sitaGLIPtin PHOSPHATE 50 MG TABLET PO SCH (12:00)
[2023-03-20] MEDS ORDERED: AMPICILLIN NA/SULBACTAM NA 3 GM in SODIUM CHLORIDE 100 ML IVPB SCH (22:30)
[2023-03-21] MEDS ORDERED: AMPICILLIN NA/SULBACTAM NA 3 GM VIAL ONE (01:54)
[2023-03-21] MEDS: AMPICILLIN NA/SULBACTAM NA 3 GM in SODIUM CHLORIDE 100 ML IVPB SCH ×4 (02:08→21:01)
[2023-03-21] MEDS: sitaGLIPtin PHOSPHATE 50 MG TABLET PO SCH (06:02)
[2023-03-21] MEDS: FERROUS SO4 325 MG TABLET (FP) PO SCH (09:36)
[2023-03-21] MEDS: PANTOPRAZOLE 40 MG TABLET PO SCH (09:36)
[2023-03-21] MEDS: RIFAXIMIN 550 MG TABLET PO SCH ×2 (09:36→21:00)
[2023-03-21] MEDS: ASCORBIC ACID 500 MG TABLET (FP) PO SCH ×2 (09:36→21:00)
[2023-03-21] MEDS: ACETAMINOPHEN 325 MG TABLET (FP) PO PRN ×2 (09:38→21:47)
[2023-03-21 10:33] LABS: POTASSIUM 4.3 mmol/L (3.5-5.1)
[2023-03-21 10:39] LABS: CALCIUM 8.6 mg/dL (8.5-10.1)
[2023-03-21 10:40] LABS: BLOOD UREA NITROGEN 22.2 mg/dL (7-18); MAGNESIUM 1.7 mg/dL (1.8-2.4)
[2023-03-21 10:43] LABS: CREATININE 0.8 mg/dL (0.55-1.3)
[2023-03-21 11:01] VITALS: RESP 18
[2023-03-21] MEDS: LACTOBACILLUS ACIDOPHILUS 1 TABLET PO SCH (13:48)
[2023-03-21] MEDS: POVIDONE-IODINE 10% SOLN 118 ML BOTTLE TP SCH (21:05)
[2023-03-22] MEDS ORDERED: AMPICILLIN NA/SULBACTAM NA 3 GM VIAL ONE (01:33)
[2023-03-22] MEDS: AMPICILLIN NA/SULBACTAM NA 3 GM in SODIUM CHLORIDE 100 ML IVPB SCH ×3 (02:53→14:09)
[2023-03-22] MEDS: POVIDONE-IODINE 10% SOLN 118 ML BOTTLE TP SCH ×2 (03:41→11:40)
[2023-03-22] MEDS: sitaGLIPtin PHOSPHATE 50 MG TABLET PO SCH (06:19)
[2023-03-22] MEDS ORDERED: MAGNESIUM SULF 50% (8.12 MEQ/2 ML-1 GM VIAL) IVPB ONE (07:13)
[2023-03-22] MEDS ORDERED: glyBURIDE 5 MG TABLET PO ONE (08:00)
[2023-03-22] MEDS ORDERED: MAGNESIUM OXIDE 400 MG TABLET (FP) PO ONE (08:54)
[2023-03-22] MEDS: RIFAXIMIN 550 MG TABLET PO SCH (09:08)
[2023-03-22] MEDS: LACTOBACILLUS ACIDOPHILUS 1 TABLET PO SCH (09:08)
[2023-03-22] MEDS: PANTOPRAZOLE 40 MG TABLET PO SCH (09:08)
[2023-03-22] MEDS: ASCORBIC ACID 500 MG TABLET (FP) PO SCH (09:08)
[2023-03-22] MEDS: FERROUS SO4 325 MG TABLET (FP) PO SCH (09:08)
[2023-03-22 10:42] VITALS: BP 140/72; PULSE 72; TEMP 98
[2023-03-22] MEDS: ACETAMINOPHEN 325 MG TABLET (FP) PO PRN (15:05)
[2023-03-23] MEDS ORDERED: FUROSEMIDE 20 MG TABLET (FP) PO SCH (10:00)
== END 2023-03-22 17:00 | disposition home or self-care (01) | DRG 603 ==
LOC: JER 15:06 → JERBED 17:50 → OBSVTOIN 03-17 → J6S 03-17 02:08
PROVIDERS: ADMIT Internal Medicine; ATTEND Internal Medicine
PROC: 0X9 Anatomical Regions, Upper Extremities, Drainage (ICD-10-PCS; principal; 2023-03-21)
DX: L03.114 Cellulitis of left upper limb (principal); I10 Essential (primary) hypertension; E78.5 Hyperlipidemia, unspecified; Z79.84 Long term (current) use of oral hypoglycemic drugs; E11.65 Type 2 diabetes mellitus with hyperglycemia; D64.9 Anemia, unspecified; K74.60 Unspecified cirrhosis of liver; E83.42 Hypomagnesemia; W55.01XA Bitten by cat, initial encounter; Y93.89 Activity, other specified; Y92.89 Other specified places as the place of occurrence of the external cause; Y99.8 Other external cause status; R91.1 Solitary pulmonary nodule
CPT/HCPCS: 0241U-QW; 36415; 73090-TC-LT-FY; 73110-TC-LT-FY; 73130-TC-LT-FY; 73218-TC-LT; 80048; 80053; 82962; 83735; 84100; 85025; 85610; 85651; 85730; 86140; 86850; 86900; 86901; 87040; 87070; 87205; 93005; 93010; 93971; 99285-25; G0378

== ENCOUNTER 2024-01-28 12:11 | Inpatient (IN) | payer OTHER, MEDICARE ==
[2024-01-28 13:28] LABS: VENOUS BASE EXCESS -0.4 mmol/L (-2-2); VENOUS O2 SATURATION 70.2 % (70-80); VENOUS PCO2 38.5 mmHg (38-52); VENOUS PH 7.413 (7.310-7.410)
[2024-01-28 13:32] LABS: BASO % 0.7 % (0-2.0); EOS % 3.7 % (0-4.5); HEMATOCRIT 36.1 % (32.4-45.2); HEMOGLOBIN 11.6 GM/dL (10.7-15.3); LYMPH % 23.5 % (8-40); MCH 30.9 pg (25.7-33.7); MCHC 32.2 g/dl (32.0-36.0); MEAN CELL VOLUME 95.9 fl (80-96); MEAN PLT VOLUME 8.5 fl (7.5-11.1); MONO % 8.4 % (3.8-10.2); NEUT % 63.7 % (42.8-82.8); PLATELET COUNT 104 10^3/uL (134-434); RBC 3.76 M/mm3 (3.60-5.2); RDW 15.1 % (11.6-15.6)
[2024-01-28 13:39] LABS: INR 1.25 (0.83-1.09); PROTHROMBIN TIME (PATIENT) 14.5 SEC (9.7-13.0)
[2024-01-28 13:48] LABS: POTASSIUM 4.2 mmol/L (3.5-5.1)
[2024-01-28 13:51] LABS: ALBUMIN 3.2 g/dl (3.4-5.0); BLOOD UREA NITROGEN 38.3 mg/dL (7-18); CALCIUM 9.6 mg/dL (8.5-10.1)
[2024-01-28 13:53] LABS: CREATININE 1.2 mg/dL (0.55-1.3)
[2024-01-28 13:55] LABS: BILIRUBIN,TOTAL 1.8 mg/dL (0.2-1); TOT PROT 7.1 g/dl (6.4-8.2)
[2024-01-28 14:02] LABS: MAGNESIUM 1.8 mg/dL (1.8-2.4)
[2024-01-28 14:14] LABS: ACTIVATED PTT 31.3 SECONDS (25.2-36.5)
[2024-01-28 14:35] LABS: LACTIC ACID 2.2 mmol/L (0.4-2.0)
[2024-01-28] MEDS: SODIUM CHLORIDE 1,000 ML IV STA (15:24)
[2024-01-28 15:33] LABS: EPI CELLS 21 /uL (0-25.1); HYALINE CASTS 1 /uL (0-3.1); URINE APPEARANCE CLEAR; URINE BACTERIA 8 /uL (0-1359); URINE BILIRUBIN NEGATIVE (NEGATIVE); URINE COLOR YELLOW; URINE GLUCOSE (UA) NEGATIVE (NEGATIVE); URINE KETONE TRACE (NEGATIVE); URINE LEUK ESTERASE TRACE (NEGATIVE); URINE NITRITE NEGATIVE (NEGATIVE); URINE PROTEIN NEGATIVE (NEGATIVE); URINE RBC 12 /uL (0-23.9); URINE WBC 12 /uL (0-25.8)
[2024-01-28 15:42] LABS: OPIATES, URI NEGATIVE (NEGATIVE); URINE BARBITURATES NEGATIVE (NEGATIVE)
[2024-01-28 15:43] LABS: METHADONE, UR NEGATIVE (NEGATIVE); PHENCYCLIDINE,URINE NEGATIVE (NEGATIVE); URINE BENZODIAZEPINES NEGATIVE (NEGATIVE)
[2024-01-28] MEDS: LACTULOSE 20 GM/30 ML UDC (FOR ORAL USE ONLY) PO ONE (15:48)
[2024-01-28] MEDS ORDERED: LACTULOSE 20 GM/30 ML UDC (FOR ORAL USE ONLY) ONE (15:48)
[2024-01-28 15:50] LABS: COCAINE, UR NEGATIVE (NEGATIVE); URINE AMPHETAMINES NEGATIVE (NEGATIVE)
[2024-01-28] MEDS: ACETAMINOPHEN 325 MG TABLET (FP) PO ONE (17:24)
[2024-01-28] MEDS ORDERED: ACETAMINOPHEN 325 MG TABLET (FP) ONE (17:24)
[2024-01-28] MEDS ORDERED: [UNRECOGNIZED DRUG - OTHER] TP SCH (20:00)
[2024-01-28] MEDS: SPIRONOLACTONE 25 MG TABLET PO SCH (20:38)
[2024-01-28] MEDS: PANTOPRAZOLE 40 MG TABLET PO SCH (20:39)
[2024-01-28] MEDS: LACTOBACILLUS ACIDOPHILUS 1 TABLET PO SCH (20:39)
[2024-01-28] MEDS: INSULIN ASPART SLIDING SCALE (NOVOLOG) 1 VIAL SQ SCH (20:47)
[2024-01-28 21:01] VITALS: RESP 18; BMI 30.6
[2024-01-28] MEDS: LACTULOSE 20 GM/30 ML UDC (FOR ORAL USE ONLY) PO SCH (23:08)
[2024-01-28] MEDS: ASCORBIC ACID 500 MG TABLET (FP) PO SCH (23:08)
[2024-01-28] MEDS: RIFAXIMIN 550 MG TABLET PO SCH (23:09)
[2024-01-29] MEDS: ACETAMINOPHEN 1000 MG/100 ML BAG IVPB ONE (02:57)
[2024-01-29] MEDS: glyBURIDE 2.5 MG TABLET PO SCH (06:48)
[2024-01-29] MEDS: sitaGLIPtin PHOSPHATE 50 MG TABLET PO SCH (06:48)
[2024-01-29 10:10] LABS: HEMATOCRIT 29.8 % (32.4-45.2); HEMOGLOBIN 9.9 GM/dL (10.7-15.3); MCH 31.7 pg (25.7-33.7); MCHC 33.2 g/dl (32.0-36.0); MEAN CELL VOLUME 95.5 fl (80-96); MEAN PLT VOLUME 8.2 fl (7.5-11.1); PLATELET COUNT 78 10^3/uL (134-434); RBC 3.12 M/mm3 (3.60-5.2); RDW 14.8 % (11.6-15.6); WHITE BLOOD COUNT 4.4 K/mm3 (4.0-10.0)
[2024-01-29 10:22] LABS: POTASSIUM 3.7 mmol/L (3.5-5.1)
[2024-01-29 10:25] LABS: BLOOD UREA NITROGEN 29.6 mg/dL (7-18); CALCIUM 8.7 mg/dL (8.5-10.1); MAGNESIUM 1.7 mg/dL (1.8-2.4)
[2024-01-29 10:26] LABS: ALBUMIN 2.6 g/dl (3.4-5.0)
[2024-01-29 10:28] LABS: PHOSPHOROUS 3.2 mg/dL (2.5-4.9)
[2024-01-29 10:29] LABS: CREATININE 1.1 mg/dL (0.55-1.3)
[2024-01-29 10:30] LABS: BILIRUBIN,TOTAL 1.4 mg/dL (0.2-1); TOT PROT 5.8 g/dl (6.4-8.2)
[2024-01-29] MEDS: FERROUS SO4 325 MG TABLET (FP) PO SCH (10:56)
[2024-01-29] MEDS: ACETAMINOPHEN 500 MG TABLET (FP) PO PRN (17:48)
[2024-01-29] MEDS: MAGNESIUM OXIDE 400 MG TABLET (FP) PO ONE (17:48)
[2024-01-29] MEDS ORDERED: ATORVASTATIN CA 10 MG TABLET (FP) PO SCH (19:47)
[2024-01-29] MEDS: ATORVASTATIN CA 10 MG TABLET (FP) PO SCH (21:59)
[2024-01-29] MEDS: CHOLECALCIFEROL (VIT D3) 5000 UNITS (125 MCG) CAP PO SCH (22:40)
[2024-01-30 09:31] LABS: HEMATOCRIT 35.7 % (32.4-45.2); HEMOGLOBIN 11.7 GM/dL (10.7-15.3); MCH 31.1 pg (25.7-33.7); MCHC 32.7 g/dl (32.0-36.0); MEAN PLT VOLUME 8.9 fl (7.5-11.1); PLATELET COUNT 118 10^3/uL (134-434); RBC 3.76 M/mm3 (3.60-5.2); RDW 15.2 % (11.6-15.6); WHITE BLOOD COUNT 10.8 K/mm3 (4.0-10.0)
[2024-01-30 10:06] LABS: CALCIUM 8.8 mg/dL (8.5-10.1)
[2024-01-30 10:07] LABS: ALBUMIN 2.7 g/dl (3.4-5.0); BLOOD UREA NITROGEN 22.5 mg/dL (7-18)
[2024-01-30 10:10] LABS: PHOSPHOROUS 2.6 mg/dL (2.5-4.9)
[2024-01-30 10:12] LABS: BILIRUBIN,TOTAL 1.6 mg/dL (0.2-1)
[2024-01-30 10:13] LABS: TOT PROT 6.2 g/dl (6.4-8.2)
[2024-01-31 09:11] LABS: BASO % 0.4 % (0-2.0); EOS % 6.9 % (0-4.5); HEMATOCRIT 30.8 % (32.4-45.2); HEMOGLOBIN 10.5 GM/dL (10.7-15.3); LYMPH % 17.3 % (8-40); MCH 32.1 pg (25.7-33.7); MCHC 34.2 g/dl (32.0-36.0); MEAN CELL VOLUME 93.9 fl (80-96); MEAN PLT VOLUME 8.9 fl (7.5-11.1); NEUT % 63.4 % (42.8-82.8); PLATELET COUNT 75 10^3/uL (134-434); RBC 3.28 M/mm3 (3.60-5.2); RDW 14.9 % (11.6-15.6); WHITE BLOOD COUNT 8.2 K/mm3 (4.0-10.0)
[2024-01-31 09:32] LABS: POTASSIUM 4.1 mmol/L (3.5-5.1)
[2024-01-31 09:34] LABS: ALBUMIN 2.4 g/dl (3.4-5.0); BLOOD UREA NITROGEN 22.9 mg/dL (7-18); CALCIUM 8.2 mg/dL (8.5-10.1); MAGNESIUM 1.5 mg/dL (1.8-2.4)
[2024-01-31 09:37] LABS: CREATININE 1.1 mg/dL (0.55-1.3); PHOSPHOROUS 2.3 mg/dL (2.5-4.9)
[2024-01-31 09:39] LABS: BILIRUBIN,TOTAL 1.1 mg/dL (0.2-1); TOT PROT 5.5 g/dl (6.4-8.2)
[2024-01-31] MEDS: NAPH,MB-DB/K PH,MBDB POWDER PACKET PO ONE (12:00)
[2024-01-31] MEDS: MAGNESIUM OXIDE 400 MG TABLET (FP) PO ONE (12:00)
[2024-01-31 15:26] VITALS: BP 117/54; PULSE 69; TEMP 98.1
== END 2024-01-31 15:45 | disposition home or self-care (01) | DRG 443 ==
LOC: JER 12:11 → JERBED 16:01 → J5S 19:00
PROVIDERS: ADMIT Internal Medicine; ATTEND Internal Medicine
DX: K76.82 Hepatic encephalopathy (principal); E11.9 Type 2 diabetes mellitus without complications; I10 Essential (primary) hypertension; E78.5 Hyperlipidemia, unspecified; R41.82 Altered mental status, unspecified; K75.81 Nonalcoholic steatohepatitis (NASH); K74.60 Unspecified cirrhosis of liver; E86.0 Dehydration; D64.9 Anemia, unspecified
CPT/HCPCS: 0241U-QW; 36415; 70450-TC; 71045-TC-FY; 76705-TC; 80053; 80307; 81003; 82140; 82803; 82962; 83605; 83735; 84100; 84443; 84484; 85025; 85027; 85610; 85730; 86850; 86900; 86901; 87040; 87086; 87186; 93005; 93010; 97116-GP; 97161-GP; 99285-25; J0131

== ENCOUNTER 2024-02-11 18:37 | Inpatient (IN) | payer OTHER, MEDICARE ==
[2024-02-11 19:44] LABS: BASO % 0.6 % (0-2.0); EOS % 1.1 % (0-4.5); HEMATOCRIT 37.6 % (32.4-45.2); LYMPH % 12.3 % (8-40); MCH 29.8 pg (25.7-33.7); MCHC 31.9 g/dl (32.0-36.0); MEAN CELL VOLUME 93.5 fl (80-96); MEAN PLT VOLUME 9.1 fl (7.5-11.1); PLATELET COUNT 96 10^3/uL (134-434); RBC 4.02 M/mm3 (3.60-5.2); RDW 15.1 % (11.6-15.6); WHITE BLOOD COUNT 5.3 K/mm3 (4.0-10.0)
[2024-02-11 19:48] LABS: INR 1.18 (0.83-1.09); PROTHROMBIN TIME (PATIENT) 13.7 SEC (9.7-13.0)
[2024-02-11 19:50] LABS: ACTIVATED PTT 28.2 SECONDS (25.2-36.5)
[2024-02-11 19:59] LABS: POTASSIUM 5.2 mmol/L (3.5-5.1)
[2024-02-11] MEDS ORDERED: PANTOPRAZOLE SODIUM 40 MG VIAL ONE (20:01)
[2024-02-11 20:02] LABS: BLOOD UREA NITROGEN 45.9 mg/dL (7-18); MAGNESIUM 2.2 mg/dL (1.8-2.4)
[2024-02-11] MEDS ORDERED: FAMOTIDINE 20 MG/50 ML IVPB 20 MG/50 ML MG IVPB ONE (20:02)
[2024-02-11] MEDS ORDERED: OCTREOTIDE ACETATE 100 MCG/1 ML ONE (20:02)
[2024-02-11 20:06] LABS: TOT PROT 7.3 g/dl (6.4-8.2)
[2024-02-11 20:07] LABS: BILIRUBIN,TOTAL 1.7 mg/dL (0.2-1)
[2024-02-11] MEDS: OCTREOTIDE ACETATE 50 MCG/1 ML - 1 ML VIAL IVPUSH ONE (20:08)
[2024-02-11] MEDS: FAMOTIDINE 20 MG/50 ML IVPB 20 MG/50 ML MG IVPB ONE (20:08)
[2024-02-11] MEDS: PANTOPRAZOLE SODIUM 40 MG VIAL IVPUSH ONE (20:08)
[2024-02-11] MEDS: ONDANSETRON 4 MG/2 ML VIAL IVPUSH ONE (20:08)
[2024-02-11] MEDS: LACTATED RINGERS SOLUTION 1000 ML INFUS.BAG IV ONE (20:08)
[2024-02-11 20:11] LABS: ALBUMIN 3.3 g/dl (3.4-5.0); CALCIUM 10.6 mg/dL (8.5-10.1)
[2024-02-11 21:13] LABS: VENOUS BASE EXCESS -4.8 mmol/L (-2-2); VENOUS O2 SATURATION 41.5 % (70-80); VENOUS PCO2 32.1 mmHg (38-52); VENOUS PH 7.391 (7.310-7.410)
[2024-02-11 21:24] LABS: LACTIC ACID 3.3 mmol/L (0.4-2.0)
[2024-02-11] MEDS: OCTREOTIDE ACETATE 200 MCG, OCTREOTIDE ACETATE 1,000 MCG in DEXTROSE 5%-WATER - 496 ML IVPB SCH (21:24)
[2024-02-11] MEDS: SODIUM CHLORIDE 0.9% 500 ML INFUS.BAG IV ONE (21:35)
[2024-02-11 21:40] LABS: POTASSIUM 4.1 mmol/L (3.5-5.1)
[2024-02-11 21:43] LABS: ALBUMIN 2.8 g/dl (3.4-5.0); BLOOD UREA NITROGEN 40.5 mg/dL (7-18); MAGNESIUM 1.8 mg/dL (1.8-2.4)
[2024-02-11 21:46] LABS: CREATININE 1.7 mg/dL (0.55-1.3)
[2024-02-11 21:47] LABS: BILIRUBIN,TOTAL 1.4 mg/dL (0.2-1); TOT PROT 6.1 g/dl (6.4-8.2)
[2024-02-11 21:55] LABS: CALCIUM 8.9 mg/dL (8.5-10.1)
[2024-02-11] MEDS ORDERED: MEROPENEM 1 GM VIAL (RESTRICTED TO ID) IVPB ONE (22:33)
[2024-02-11] MEDS: MEROPENEM 1 GM in DEXTROSE 5%-WATER 100 ML IVPB ONE (22:41)
[2024-02-11 23:11] LABS: BASO % 0.2 % (0-2.0); EOS % 0.6 % (0-4.5); HEMATOCRIT 32.4 % (32.4-45.2); HEMOGLOBIN 10.5 GM/dL (10.7-15.3); LYMPH % 15.6 % (8-40); MCH 30.1 pg (25.7-33.7); MCHC 32.4 g/dl (32.0-36.0); MEAN CELL VOLUME 92.7 fl (80-96); MEAN PLT VOLUME 8.6 fl (7.5-11.1); MONO % 5.2 % (3.8-10.2); NEUT % 78.4 % (42.8-82.8); PLATELET COUNT 63 10^3/uL (134-434); RBC 3.49 M/mm3 (3.60-5.2); RDW 15.1 % (11.6-15.6); WHITE BLOOD COUNT 4.2 K/mm3 (4.0-10.0)
[2024-02-11] MEDS ORDERED: LACTULOSE 20 GM/30 ML UDC (FOR ORAL USE ONLY) ONE (23:19)
[2024-02-11 23:34] LABS: LACTIC ACID 3.9 mmol/L (0.4-2.0)
[2024-02-12] MEDS: PANTOPRAZOLE SODIUM 80 MG in SODIUM CHLORIDE 100 ML IVPB SCH
[2024-02-12] MEDS: LACTULOSE 20 GM/30 ML UDC (FOR RECTAL USE ONLY) PR ONE (00:30)
[2024-02-12] MEDS: HALOPERIDOL LACTATE 5 MG/ML IM ONE (01:23)
[2024-02-12] MEDS: LACTATED RINGERS SOLUTION 1,000 ML/1,000 ML INFUS.BAG IV SCH (01:26)
[2024-02-12] MEDS: DEXMEDETOMIDINE PREMIX 400 MCG/100 ML BAG IVPB SCH ×2 (02:43→20:00)
[2024-02-12 02:47] LABS: BASO % 0.5 % (0-2.0); EOS % 0.9 % (0-4.5); HEMATOCRIT 26.9 % (32.4-45.2); HEMOGLOBIN 8.7 GM/dL (10.7-15.3); LYMPH % 15.5 % (8-40); MCHC 32.3 g/dl (32.0-36.0); MEAN PLT VOLUME 8.8 fl (7.5-11.1); MONO % 7.7 % (3.8-10.2); NEUT % 75.4 % (42.8-82.8); PLATELET COUNT 61 10^3/uL (134-434); RBC 2.89 M/mm3 (3.60-5.2); WHITE BLOOD COUNT 3.8 K/mm3 (4.0-10.0)
[2024-02-12 02:50] LABS: EPI CELLS 17 /uL (0-25.1); HYALINE CASTS 1 /uL (0-3.1); PH,URINE 5.5 (5.0-8.0); URINE APPEARANCE CLEAR; URINE BACTERIA 2065 /uL (0-1359); URINE BILIRUBIN NEGATIVE (NEGATIVE); URINE COLOR YELLOW; URINE GLUCOSE (UA) NEGATIVE (NEGATIVE); URINE KETONE NEGATIVE (NEGATIVE); URINE LEUK ESTERASE 1+ (NEGATIVE); URINE NITRITE POSITIVE (NEGATIVE); URINE PROTEIN NEGATIVE (NEGATIVE); URINE RBC 32 /uL (0-23.9); URINE UROBILINOGEN 0.2 mg/dL (0.2-1.0); URINE WBC 66 /uL (0-25.8)
[2024-02-12 07:20] LABS: BASO % 0.5 % (0-2.0); EOS % 2.1 % (0-4.5); HEMOGLOBIN 10.5 GM/dL (10.7-15.3); LYMPH % 16.6 % (8-40); MCH 30.2 pg (25.7-33.7); MCHC 32.8 g/dl (32.0-36.0); MEAN CELL VOLUME 92.2 fl (80-96); MEAN PLT VOLUME 8.6 fl (7.5-11.1); MONO % 8.4 % (3.8-10.2); NEUT % 72.4 % (42.8-82.8); PLATELET COUNT 59 10^3/uL (134-434); RBC 3.47 M/mm3 (3.60-5.2); RDW 14.8 % (11.6-15.6); WHITE BLOOD COUNT 3.7 K/mm3 (4.0-10.0)
[2024-02-12 07:41] LABS: POTASSIUM 4.2 mmol/L (3.5-5.1)
[2024-02-12 08:01] LABS: ALBUMIN 2.8 g/dl (3.4-5.0)
[2024-02-12 08:03] LABS: BLOOD UREA NITROGEN 39.4 mg/dL (7-18); CALCIUM 9.3 mg/dL (8.5-10.1); MAGNESIUM 1.8 mg/dL (1.8-2.4)
[2024-02-12 08:05] LABS: CREATININE 1.6 mg/dL (0.55-1.3); PHOSPHOROUS 3.7 mg/dL (2.5-4.9)
[2024-02-12 08:07] LABS: BILIRUBIN,TOTAL 1.3 mg/dL (0.2-1); TOT PROT 5.8 g/dl (6.4-8.2)
[2024-02-12 08:44] LABS: INR 1.3 (0.83-1.09)
[2024-02-12 08:47] LABS: ACTIVATED PTT 29.5 SECONDS (25.2-36.5)
[2024-02-12 08:50] LABS: BILIRUBIN,DIRECT 0.4 mg/dL (0.0-0.2)
[2024-02-12 08:57] LABS: RETICULOCYTES 2.24 % (0.5-1.5)
[2024-02-12] MEDS ORDERED: TRIMETHOBENZAMIDE HCL 200MG/2ML INJ IM PRN (09:11)
[2024-02-12] MEDS ORDERED: CEFTRIAXONE 1 GM in DEXTROSE 5%-WATER - 50 ML IVPB SCH (10:00)
[2024-02-12] MEDS: MUPIROCIN 2% TOPICAL OINTMENT FOR DECOLONIZATION NS SCH (11:33)
[2024-02-12] MEDS ORDERED: INSULIN (NOVOLOG) ASPART 100 UNITS/ML 10ML VIAL ONE ×2 (13:01→17:30)
[2024-02-12] MEDS: LACTULOSE 10 GM/15 ML BULK BOTTLE RC SCH (13:03)
[2024-02-12] MEDS: INSULIN ASPART SLIDING SCALE (NOVOLOG) 1 VIAL SQ SCH (13:03)
[2024-02-12] MEDS: VANCOMYCIN PREMIX 1.75 GM 1,750 MG/350 ML PIGGYBACK IVPB ONE (13:46)
[2024-02-12] MEDS ORDERED: LACTULOSE 10 GM/15 ML BULK BOTTLE RC ONE (14:00)
[2024-02-12] MEDS: LACTATED RINGERS SOLUTION 1000 ML INFUS.BAG IV ONE ×2 (16:27→18:19)
[2024-02-12] MEDS: LACTULOSE 10 GM/15 ML BULK BOTTLE RC ONE (16:34)
[2024-02-12] MEDS: PIPERACILLIN/TAZOB 4.5 GM 4.5 GM in DEXTROSE 5%-WATER 100 ML IVPB ONE (16:50)
[2024-02-12] MEDS: CHLORHEXIDINE GLUCONATE 4% CLEANSER FOR DECOLONIZATION TP SCH (22:02)
[2024-02-13] MEDS: PIPERACILLIN/TAZOB 3.375 GM 3.375 GM in DEXTROSE 5%-WATER - 50 ML IVPB SCH (01:09)
[2024-02-13] MEDS ORDERED: INSULIN (NOVOLOG) ASPART 100 UNITS/ML 10ML VIAL ONE (06:10)
[2024-02-13 06:45] LABS: HEMATOCRIT 31.4 % (32.4-45.2); HEMOGLOBIN 10.3 GM/dL (10.7-15.3); MCH 30.3 pg (25.7-33.7); MCHC 32.8 g/dl (32.0-36.0); MEAN CELL VOLUME 92.6 fl (80-96); MEAN PLT VOLUME 8.8 fl (7.5-11.1); PLATELET COUNT 55 10^3/uL (134-434); RBC 3.39 M/mm3 (3.60-5.2); RDW 14.8 % (11.6-15.6); WHITE BLOOD COUNT 6.4 K/mm3 (4.0-10.0)
[2024-02-13 07:01] LABS: INR 1.4 (0.83-1.09); PROTHROMBIN TIME (PATIENT) 16.2 SEC (9.7-13.0)
[2024-02-13 07:05] LABS: POTASSIUM 4.2 mmol/L (3.5-5.1)
[2024-02-13 07:07] LABS: ALBUMIN 2.4 g/dl (3.4-5.0); CALCIUM 8.5 mg/dL (8.5-10.1); MAGNESIUM 1.5 mg/dL (1.8-2.4)
[2024-02-13 07:10] LABS: CREATININE 1.4 mg/dL (0.55-1.3)
[2024-02-13 07:11] LABS: PHOSPHOROUS 3.2 mg/dL (2.5-4.9)
[2024-02-13 07:12] LABS: BILIRUBIN,TOTAL 1.7 mg/dL (0.2-1); TOT PROT 5.4 g/dl (6.4-8.2)
[2024-02-13] MEDS: LACTATED RINGERS SOLUTION 1,000 ML/1,000 ML INFUS.BAG IV STA (07:57)
[2024-02-13] MEDS: MAGNESIUM 2GM/50ML STERILE WATER IVPB IVPB ONE (07:59)
[2024-02-13 08:55] LABS: LACTIC ACID 3.4 mmol/L (0.4-2.0)
[2024-02-13] MEDS: PANTOPRAZOLE SODIUM 40 MG VIAL IVPUSH SCH (09:51)
[2024-02-13] MEDS: RIFAXIMIN 550 MG TABLET PO SCH (10:01)
[2024-02-13] MEDS: LACTULOSE 20 GM/30 ML UDC (FOR ORAL USE ONLY) PO SCH (18:18)
[2024-02-13] MEDS: LACTULOSE 20 GM/30 ML UDC (FOR ORAL USE ONLY) PO ONE ×2 (19:04→19:06)
[2024-02-13] MEDS: LACTATED RINGERS SOLUTION 1000 ML INFUS.BAG IV ONE (19:05)
[2024-02-13] MEDS: DEXMEDETOMIDINE PREMIX 400 MCG/100 ML BAG IVPB SCH (20:38)
[2024-02-14 07:07] LABS: BASO % 0.4 % (0-2.0); EOS % 3.6 % (0-4.5); HEMATOCRIT 32.9 % (32.4-45.2); HEMOGLOBIN 10.7 GM/dL (10.7-15.3); LYMPH % 11.9 % (8-40); MCH 30.1 pg (25.7-33.7); MCHC 32.5 g/dl (32.0-36.0); MEAN CELL VOLUME 92.6 fl (80-96); MEAN PLT VOLUME 8.6 fl (7.5-11.1); MONO % 6.4 % (3.8-10.2); NEUT % 77.7 % (42.8-82.8); PLATELET COUNT 47 10^3/uL (134-434); RBC 3.55 M/mm3 (3.60-5.2); RDW 14.7 % (11.6-15.6); WHITE BLOOD COUNT 5.2 K/mm3 (4.0-10.0)
[2024-02-14 07:14] LABS: INR 1.38 (0.83-1.09); PROTHROMBIN TIME (PATIENT) 15.9 SEC (9.7-13.0)
[2024-02-14 07:32] LABS: POTASSIUM 3.8 mmol/L (3.5-5.1)
[2024-02-14 07:36] LABS: CALCIUM 8.7 mg/dL (8.5-10.1)
[2024-02-14 07:37] LABS: ALBUMIN 2.4 g/dl (3.4-5.0); BLOOD UREA NITROGEN 27.2 mg/dL (7-18); MAGNESIUM 1.7 mg/dL (1.8-2.4)
[2024-02-14 07:39] LABS: CREATININE 1.2 mg/dL (0.55-1.3)
[2024-02-14 07:41] LABS: BILIRUBIN,TOTAL 1.4 mg/dL (0.2-1); TOT PROT 5.6 g/dl (6.4-8.2)
[2024-02-14 07:50] LABS: LACTIC ACID 2.1 mmol/L (0.4-2.0)
[2024-02-14] MEDS: MAGNESIUM 2GM/50ML STERILE WATER IVPB IVPB ONE (10:43)
[2024-02-14] MEDS: MELATONIN 5 MG TABLETS PO ONE (21:27)
[2024-02-15] MEDS ORDERED: INSULIN (NOVOLOG) ASPART 100 UNITS/ML 10ML VIAL ONE ×2 (06:22→13:55)
[2024-02-15 06:58] LABS: BASO % 0.4 % (0-2.0); EOS % 6.6 % (0-4.5); HEMATOCRIT 32.2 % (32.4-45.2); HEMOGLOBIN 10.3 GM/dL (10.7-15.3); MCH 29.5 pg (25.7-33.7); MCHC 31.9 g/dl (32.0-36.0); MEAN CELL VOLUME 92.5 fl (80-96); MONO % 7.7 % (3.8-10.2); NEUT % 71.3 % (42.8-82.8); PLATELET COUNT 46 10^3/uL (134-434); RBC 3.48 M/mm3 (3.60-5.2); RDW 14.7 % (11.6-15.6); WHITE BLOOD COUNT 4.8 K/mm3 (4.0-10.0)
[2024-02-15 07:15] LABS: POTASSIUM 3.6 mmol/L (3.5-5.1)
[2024-02-15 07:17] LABS: CALCIUM 8.4 mg/dL (8.5-10.1)
[2024-02-15 07:18] LABS: ALBUMIN 2.2 g/dl (3.4-5.0); BLOOD UREA NITROGEN 22.5 mg/dL (7-18); MAGNESIUM 1.7 mg/dL (1.8-2.4)
[2024-02-15 07:21] LABS: CREATININE 1.1 mg/dL (0.55-1.3)
[2024-02-15 07:23] LABS: BILIRUBIN,TOTAL 1.1 mg/dL (0.2-1); TOT PROT 5.3 g/dl (6.4-8.2)
[2024-02-15 07:26] LABS: INR 1.4 (0.83-1.09); PROTHROMBIN TIME (PATIENT) 16.2 SEC (9.7-13.0)
[2024-02-15] MEDS: MAGNESIUM 2GM/50ML STERILE WATER IVPB IVPB ONE (08:07)
[2024-02-15] MEDS ORDERED: SODIUM CHLORIDE 1,000 ML IV SCH (09:30)
[2024-02-15] MEDS: SODIUM CHLORIDE 0.45% 1,000 ML IV SCH (10:01)
[2024-02-15] MEDS: INSULIN (LEVEMIR) 100 UNITS/ML UNITS SQ SCH (22:03)
[2024-02-16 06:48] LABS: POTASSIUM 3.4 mmol/L (3.5-5.1)
[2024-02-16 06:53] LABS: BLOOD UREA NITROGEN 20.4 mg/dL (7-18); CALCIUM 8.5 mg/dL (8.5-10.1); MAGNESIUM 1.8 mg/dL (1.8-2.4)
[2024-02-16 06:54] LABS: ALBUMIN 2.4 g/dl (3.4-5.0)
[2024-02-16 06:56] LABS: CREATININE 1.2 mg/dL (0.55-1.3); PHOSPHOROUS 2.2 mg/dL (2.5-4.9)
[2024-02-16 06:57] LABS: BASO % 0.6 % (0-2.0); BILIRUBIN,TOTAL 1.4 mg/dL (0.2-1); EOS % 2.8 % (0-4.5); HEMATOCRIT 35.2 % (32.4-45.2); HEMOGLOBIN 11.8 GM/dL (10.7-15.3); MCH 30.5 pg (25.7-33.7); MCHC 33.6 g/dl (32.0-36.0); MEAN CELL VOLUME 90.9 fl (80-96); MEAN PLT VOLUME 8.8 fl (7.5-11.1); MONO % 9.3 % (3.8-10.2); NEUT % 71.3 % (42.8-82.8); PLATELET COUNT 79 10^3/uL (134-434); RBC 3.87 M/mm3 (3.60-5.2); RDW 15.1 % (11.6-15.6); TOT PROT 5.8 g/dl (6.4-8.2); WHITE BLOOD COUNT 10.4 K/mm3 (4.0-10.0)
[2024-02-16] MEDS ORDERED: oxyCODONE HCL 5 MG TABLET PO PRN (13:08)
[2024-02-16] MEDS ORDERED: levETIRAcetam 500 MG/5 ML INJECTION VIAL IVPB ONE (17:51)
[2024-02-16] MEDS: levETIRAcetam 500 MG/5 ML INJECTION VIAL IVPB ONE (17:54)
[2024-02-16] MEDS: ACETAMINOPHEN 500 MG TABLET (FP) PO PRN (18:19)
[2024-02-16] MEDS: levETIRAcetam 500 MG/5 ML INJECTION VIAL IVPB SCH (22:29)
[2024-02-17 07:33] LABS: BASO % 0.5 % (0-2.0); EOS % 3.4 % (0-4.5); HEMATOCRIT 33.1 % (32.4-45.2); HEMOGLOBIN 10.9 GM/dL (10.7-15.3); LYMPH % 23.8 % (8-40); MCH 30.1 pg (25.7-33.7); MEAN CELL VOLUME 91.3 fl (80-96); MEAN PLT VOLUME 8.2 fl (7.5-11.1); NEUT % 61.3 % (42.8-82.8); PLATELET COUNT 66 10^3/uL (134-434); RBC 3.63 M/mm3 (3.60-5.2); WHITE BLOOD COUNT 8.7 K/mm3 (4.0-10.0)
[2024-02-17 07:45] LABS: POTASSIUM 3.3 mmol/L (3.5-5.1)
[2024-02-17 07:52] LABS: CALCIUM 7.9 mg/dL (8.5-10.1)
[2024-02-17 07:53] LABS: ALBUMIN 2.2 g/dl (3.4-5.0); BLOOD UREA NITROGEN 17.7 mg/dL (7-18); MAGNESIUM 1.7 mg/dL (1.8-2.4)
[2024-02-17 07:56] LABS: BILIRUBIN,TOTAL 1.5 mg/dL (0.2-1); TOT PROT 5.2 g/dl (6.4-8.2)
[2024-02-17] MEDS: POTASSIUM CHLORIDE ORAL LIQUID 20 MEQ/15 ML PO ONE (13:55)
[2024-02-18] MEDS ORDERED: METOPROLOL TARTRATE 5 MG/5 ML VIAL ONE (04:17)
[2024-02-18] MEDS ORDERED: AMIODARONE IN DEXTROSE,ISO-OSM 150 MG/100 ML BAG ONE (04:47)
[2024-02-18] MEDS: METOPROLOL TARTRATE 5 MG/5 ML VIAL IVPUSH ONE ×2 (04:54→07:12)
[2024-02-18] MEDS: POTASSIUM CHLORIDE ORAL LIQUID 20 MEQ/15 ML PO ONE (04:54)
[2024-02-18] MEDS: MAGNESIUM SULF 50% (8.12 MEQ/2 ML-1 GM VIAL) IVPB ONE (04:56)
[2024-02-18] MEDS: AMIODARONE HCL INJECTION 150 MG in DEXTROSE 5%-WATER - 100 ML IVPB ONE (05:03)
[2024-02-18] MEDS: ENOXAPARIN NA (PORCINE) 80 MG/0.8 ML DISP.SYRIN SQ SCH (05:05)
[2024-02-18] MEDS: AMIODARONE IN DEXTROSE,ISO-OSM 360 MG/200 ML BAG IV SCH ×2 (05:07→11:45)
[2024-02-18] MEDS ORDERED: propRANOLol HCL 10 MG TABLET PO SCH (05:45)
[2024-02-18] MEDS: SODIUM CHLORIDE 1,000 ML IV STA (06:28)
[2024-02-18 07:24] LABS: BASO % 0.8 % (0-2.0); EOS % 6.4 % (0-4.5); HEMATOCRIT 28.4 % (32.4-45.2); HEMOGLOBIN 9.4 GM/dL (10.7-15.3); LYMPH % 30.6 % (8-40); MEAN CELL VOLUME 91.1 fl (80-96); MEAN PLT VOLUME 8.3 fl (7.5-11.1); MONO % 10.7 % (3.8-10.2); NEUT % 51.5 % (42.8-82.8); PLATELET COUNT 72 10^3/uL (134-434); RBC 3.12 M/mm3 (3.60-5.2); RDW 15.4 % (11.6-15.6); WHITE BLOOD COUNT 8.8 K/mm3 (4.0-10.0)
[2024-02-18 07:35] LABS: POTASSIUM 4.1 mmol/L (3.5-5.1)
[2024-02-18 07:50] LABS: BLOOD UREA NITROGEN 14.7 mg/dL (7-18); CALCIUM 7.5 mg/dL (8.5-10.1); MAGNESIUM 2.3 mg/dL (1.8-2.4)
[2024-02-18 07:53] LABS: CREATININE 0.8 mg/dL (0.55-1.3)
[2024-02-18 07:55] LABS: TOT PROT 4.6 g/dl (6.4-8.2)
[2024-02-18 07:56] LABS: BILIRUBIN,TOTAL 1.1 mg/dL (0.2-1)
[2024-02-18] MEDS ORDERED: ENOXAPARIN NA (PORCINE) 80 MG/0.8 ML DISP.SYRIN SQ SCH (10:00)
[2024-02-19 07:18] LABS: EOS % 8.8 % (0-4.5); HEMATOCRIT 31.8 % (32.4-45.2); HEMOGLOBIN 10.3 GM/dL (10.7-15.3); LYMPH % 29.6 % (8-40); MCH 29.6 pg (25.7-33.7); MCHC 32.3 g/dl (32.0-36.0); MEAN CELL VOLUME 91.4 fl (80-96); MONO % 12.1 % (3.8-10.2); NEUT % 48.5 % (42.8-82.8); PLATELET COUNT 73 10^3/uL (134-434); RBC 3.48 M/mm3 (3.60-5.2); RDW 15.8 % (11.6-15.6); WHITE BLOOD COUNT 7.3 K/mm3 (4.0-10.0)
[2024-02-19 07:31] LABS: POTASSIUM 3.5 mmol/L (3.5-5.1)
[2024-02-19 07:36] LABS: ALBUMIN 2.1 g/dl (3.4-5.0); BLOOD UREA NITROGEN 13.4 mg/dL (7-18); CALCIUM 7.6 mg/dL (8.5-10.1); MAGNESIUM 1.8 mg/dL (1.8-2.4)
[2024-02-19 07:39] LABS: CREATININE 0.8 mg/dL (0.55-1.3); PHOSPHOROUS 1.3 mg/dL (2.5-4.9)
[2024-02-19] MEDS ORDERED: INSULIN (NOVOLOG) ASPART 100 UNITS/ML 10ML VIAL ONE ×2 (12:06→23:45)
[2024-02-19] MEDS ORDERED: TRIMETHOBENZAMIDE HCL 200MG/2ML INJ IM PRN (13:28)
[2024-02-19] MEDS: LACTULOSE 20 GM/30 ML UDC (FOR ORAL USE ONLY) PO SCH ×2 (13:54→21:40)
[2024-02-19] MEDS: SODIUM CHLORIDE 0.45% 1,000 ML IV SCH (14:01)
[2024-02-19] MEDS: INSULIN ASPART SLIDING SCALE (NOVOLOG) 1 VIAL SQ SCH (17:22)
[2024-02-19] MEDS: POTASSIUM PHOSPHATE 15 MM in SODIUM CHLORIDE 250 ML IVPB ONE (19:01)
[2024-02-19] MEDS: CHLORHEXIDINE GLUCONATE 4% CLEANSER FOR DECOLONIZATION TP SCH (21:29)
[2024-02-19] MEDS: levETIRAcetam 500 MG/5 ML INJECTION VIAL IVPB SCH (21:29)
[2024-02-19] MEDS: ENOXAPARIN NA (PORCINE) 80 MG/0.8 ML DISP.SYRIN SQ SCH (21:37)
[2024-02-19] MEDS: INSULIN (LEVEMIR) 100 UNITS/ML UNITS SQ SCH (21:40)
[2024-02-19] MEDS: RIFAXIMIN 550 MG TABLET PO SCH (23:41)
[2024-02-20] MEDS: dilTIAZem HCL 25 MG/5 ML - 5 ML VIAL IVPUSH ONE (06:25)
[2024-02-20 08:15] LABS: BASO % 0.9 % (0-2.0); EOS % 7.6 % (0-4.5); HEMATOCRIT 32.4 % (32.4-45.2); HEMOGLOBIN 10.5 GM/dL (10.7-15.3); MCH 29.6 pg (25.7-33.7); MCHC 32.4 g/dl (32.0-36.0); MEAN CELL VOLUME 91.3 fl (80-96); MEAN PLT VOLUME 8.3 fl (7.5-11.1); MONO % 15.1 % (3.8-10.2); NEUT % 48.4 % (42.8-82.8); PLATELET COUNT 53 10^3/uL (134-434); RBC 3.55 M/mm3 (3.60-5.2); RDW 15.8 % (11.6-15.6); WHITE BLOOD COUNT 3.9 K/mm3 (4.0-10.0)
[2024-02-20 08:25] LABS: INR 1.4 (0.83-1.09); PROTHROMBIN TIME (PATIENT) 16.2 SEC (9.7-13.0)
[2024-02-20 08:27] LABS: ACTIVATED PTT 31.3 SECONDS (25.2-36.5)
[2024-02-20 08:55] LABS: POTASSIUM 3.6 mmol/L (3.5-5.1)
[2024-02-20 09:02] LABS: ALBUMIN 2.1 g/dl (3.4-5.0); BLOOD UREA NITROGEN 13.1 mg/dL (7-18); PHOSPHOROUS 1.3 mg/dL (2.5-4.9)
[2024-02-20 09:03] LABS: CALCIUM 7.8 mg/dL (8.5-10.1); MAGNESIUM 1.8 mg/dL (1.8-2.4); TOT PROT 5.1 g/dl (6.4-8.2)
[2024-02-20 09:04] LABS: BILIRUBIN,TOTAL 1.1 mg/dL (0.2-1)
[2024-02-20 09:05] LABS: CREATININE 0.7 mg/dL (0.55-1.3)
[2024-02-20] MEDS: PANTOPRAZOLE SODIUM 40 MG VIAL IVPUSH SCH (10:14)
[2024-02-20] MEDS: POTASSIUM PHOSPHATE 30 MM in SODIUM CHLORIDE 500 ML IVPB ONE (11:40)
[2024-02-20] MEDS: dilTIAZem HCL 30 MG TABLET PO SCH (15:04)
[2024-02-20] MEDS: ACETAMINOPHEN 500 MG TABLET (FP) PO PRN (19:04)
[2024-02-20] MEDS ORDERED: INSULIN (NOVOLOG) ASPART 100 UNITS/ML 10ML VIAL ONE (21:18)
[2024-02-21 08:25] LABS: EOS % 7.3 % (0-4.5); HEMATOCRIT 31.4 % (32.4-45.2); HEMOGLOBIN 10.3 GM/dL (10.7-15.3); LYMPH % 24.1 % (8-40); MCH 29.7 pg (25.7-33.7); MCHC 32.9 g/dl (32.0-36.0); MEAN CELL VOLUME 90.3 fl (80-96); MEAN PLT VOLUME 7.7 fl (7.5-11.1); MONO % 15.5 % (3.8-10.2); NEUT % 52.1 % (42.8-82.8); PLATELET COUNT 50 10^3/uL (134-434); RBC 3.47 M/mm3 (3.60-5.2); RDW 15.9 % (11.6-15.6)
[2024-02-21 08:44] LABS: POTASSIUM 3.7 mmol/L (3.5-5.1)
[2024-02-21 08:46] LABS: ALBUMIN 2.2 g/dl (3.4-5.0); CALCIUM 7.9 mg/dL (8.5-10.1)
[2024-02-21 08:47] LABS: BLOOD UREA NITROGEN 12.7 mg/dL (7-18)
[2024-02-21 08:50] LABS: CREATININE 0.7 mg/dL (0.55-1.3); MAGNESIUM 1.5 mg/dL (1.8-2.4); PHOSPHOROUS 2.1 mg/dL (2.5-4.9)
[2024-02-21 08:51] LABS: BILIRUBIN,TOTAL 1.5 mg/dL (0.2-1); TOT PROT 5.1 g/dl (6.4-8.2)
[2024-02-21] MEDS: PANTOPRAZOLE 40 MG TABLET PO SCH (09:58)
[2024-02-21] MEDS: LACTULOSE 20 GM/30 ML UDC (FOR ORAL USE ONLY) PO SCH (10:20)
[2024-02-21] MEDS ORDERED: dilTIAZem HCL 30 MG TABLET PO SCH (12:00)
[2024-02-22 08:08] LABS: BASO % 0.8 % (0-2.0); EOS % 6.4 % (0-4.5); HEMATOCRIT 33.2 % (32.4-45.2); HEMOGLOBIN 10.8 GM/dL (10.7-15.3); LYMPH % 26.7 % (8-40); MCH 29.6 pg (25.7-33.7); MCHC 32.7 g/dl (32.0-36.0); MEAN CELL VOLUME 90.4 fl (80-96); MEAN PLT VOLUME 8.2 fl (7.5-11.1); MONO % 14.3 % (3.8-10.2); NEUT % 51.8 % (42.8-82.8); PLATELET COUNT 60 10^3/uL (134-434); RBC 3.67 M/mm3 (3.60-5.2); RDW 15.8 % (11.6-15.6); WHITE BLOOD COUNT 5.8 K/mm3 (4.0-10.0)
[2024-02-22 08:30] LABS: POTASSIUM 3.5 mmol/L (3.5-5.1)
[2024-02-22 08:42] LABS: ALBUMIN 2.3 g/dl (3.4-5.0)
[2024-02-22 08:45] LABS: CREATININE 0.7 mg/dL (0.55-1.3)
[2024-02-22 08:46] LABS: BILIRUBIN,TOTAL 1.4 mg/dL (0.2-1)
[2024-02-22 08:49] LABS: TOT PROT 5.2 g/dl (6.4-8.2)
[2024-02-22] MEDS ORDERED: INSULIN (NOVOLOG) ASPART 100 UNITS/ML 10ML VIAL ONE (12:08)
[2024-02-22] MEDS ORDERED: PATIENT'S OWN MEDICATION (NON-FORMULARY) (Spironolactone [Spironolactone] 50 MG Tablet) PO SCH (15:30)
[2024-02-22] MEDS: SPIRONOLACTONE 25 MG TABLET PO SCH (17:54)
[2024-02-23 07:16] LABS: BASO % 0.6 % (0-2.0); EOS % 6.4 % (0-4.5); LYMPH % 24.2 % (8-40); MCH 29.6 pg (25.7-33.7); MCHC 32.4 g/dl (32.0-36.0); MEAN CELL VOLUME 91.3 fl (80-96); MEAN PLT VOLUME 8.8 fl (7.5-11.1); MONO % 14.9 % (3.8-10.2); NEUT % 53.9 % (42.8-82.8); PLATELET COUNT 58 10^3/uL (134-434); RDW 16.1 % (11.6-15.6); WHITE BLOOD COUNT 5.2 K/mm3 (4.0-10.0)
[2024-02-23 07:39] LABS: POTASSIUM 3.6 mmol/L (3.5-5.1)
[2024-02-23 07:41] LABS: CALCIUM 8.1 mg/dL (8.5-10.1)
[2024-02-23 07:42] LABS: ALBUMIN 2.1 g/dl (3.4-5.0); BLOOD UREA NITROGEN 11.1 mg/dL (7-18); MAGNESIUM 1.2 mg/dL (1.8-2.4)
[2024-02-23 07:46] LABS: BILIRUBIN,TOTAL 1.3 mg/dL (0.2-1); TOT PROT 4.9 g/dl (6.4-8.2)
[2024-02-23 07:48] LABS: CREATININE 0.8 mg/dL (0.55-1.3)
[2024-02-23] MEDS: NAPH,MB-DB/K PH,MBDB POWDER PACKET PO ONE ×2 (08:55→09:02)
[2024-02-23] MEDS: MAGNESIUM SULF 50% (8.12 MEQ/2 ML-1 GM VIAL) IVPB ONE (08:58)
[2024-02-23] MEDS: FUROSEMIDE 20 MG TABLET (FP) PO ONE (14:57)
[2024-02-23] MEDS: POTASSIUM CHLORIDE ORAL LIQUID 20 MEQ/15 ML PO ONE (14:57)
[2024-02-23] MEDS: MAGNESIUM OXIDE 400 MG TABLET (FP) PO ONE (14:57)
[2024-02-23] MEDS: LACTULOSE 20 GM/30 ML UDC (FOR ORAL USE ONLY) PO ONE (15:58)
[2024-02-23] MEDS: LACTULOSE 20 GM/30 ML UDC (FOR ORAL USE ONLY) PO SCH (22:03)
[2024-02-23] MEDS: MAGNESIUM OXIDE 400 MG TABLET (FP) PO SCH (22:03)
[2024-02-23] MEDS ORDERED: INSULIN (NOVOLOG) ASPART 100 UNITS/ML 10ML VIAL ONE (23:07)
[2024-02-24 05:20] VITALS: RESP 18
[2024-02-24] MEDS ORDERED: INSULIN (NOVOLOG) ASPART 100 UNITS/ML 10ML VIAL ONE (05:56)
[2024-02-24 12:01] VITALS: BP 132/66; PULSE 67; TEMP 98.3
[2024-02-24] MEDS ORDERED: POTASSIUM CHLORIDE ORAL LIQUID 20 MEQ/15 ML PO ONE (12:25)
[2024-02-24] MEDS ORDERED: FUROSEMIDE 20 MG TABLET (FP) PO ONE (12:25)
[2024-02-24 23:37] VITALS: BMI 32.2
== END 2024-02-24 12:56 | DRG 442 ==
LOC: JER 18:37 → JERBED 23:04 → JICU 02-12 00:55 → J4W 02-19 13:02
PROVIDERS: ADMIT Internal Medicine Pulmonary Disease; ATTEND Internal Medicine
DX: K76.82 Hepatic encephalopathy (principal); E87.20 Acidosis, unspecified; N17.9 Acute kidney failure, unspecified; N39.0 Urinary tract infection, site not specified; K92.0 Hematemesis; I85.00 Esophageal varices without bleeding; E11.9 Type 2 diabetes mellitus without complications; I10 Essential (primary) hypertension; E78.5 Hyperlipidemia, unspecified; K74.60 Unspecified cirrhosis of liver; E83.52 Hypercalcemia; K75.81 Nonalcoholic steatohepatitis (NASH); D69.6 Thrombocytopenia, unspecified; E86.0 Dehydration; G93.9 Disorder of brain, unspecified; E87.6 Hypokalemia; R33.8 Other retention of urine; E88.09 Other disorders of plasma-protein metabolism, not elsewhere classified; D64.9 Anemia, unspecified; I49.5 Sick sinus syndrome; B96.1 Klebsiella pneumoniae [K. pneumoniae] as the cause of diseases classified elsewhere
CPT/HCPCS: 0241U-QW; 36415; 70450-TC; 70551-TC; 70552-TC; 71045-TC-FY; 80053; 81003; 82140; 82248; 82272; 82533; 82607; 82746; 82803; 82962; 83036; 83605; 83615; 83735; 84100; 84443; 84484; 85025; 85027; 85045; 85610; 85730; 86850; 86900; 86901; 87040; 87086; 87186; 93005; 93010; 93306-TC; 97116-GP; 97162-GP; 99291; J3370

== ENCOUNTER 2024-08-09 11:57 | Inpatient (IN) | payer OTHER, MEDICARE ==
[2024-08-09 13:15] LABS: BASO % 0.9 % (0-2.0); EOS % 3.3 % (0-4.5); HEMATOCRIT 33.9 % (32.4-45.2); LYMPH % 26.6 % (8-40); MCH 27.9 pg (25.7-33.7); MCHC 32.5 g/dl (32.0-36.0); MEAN CELL VOLUME 85.9 fl (80-96); MONO % 8.6 % (3.8-10.2); NEUT % 60.6 % (42.8-82.8); PLATELET COUNT 79 10^3/uL (134-434); RBC 3.95 M/mm3 (3.60-5.2); RDW 18.8 % (11.6-15.6); WHITE BLOOD COUNT 4.2 K/mm3 (4.0-10.0)
[2024-08-09 13:24] LABS: INR 1.16 (0.83-1.09)
[2024-08-09 13:27] LABS: ACTIVATED PTT 28.7 SECONDS (25.2-36.5)
[2024-08-09 13:44] LABS: POTASSIUM 4.2 mmol/L (3.5-5.1)
[2024-08-09 13:47] LABS: CALCIUM 9.8 mg/dL (8.5-10.1)
[2024-08-09 13:48] LABS: ALBUMIN 3.3 g/dl (3.4-5.0); BLOOD UREA NITROGEN 29.6 mg/dL (7-18); MAGNESIUM 2.1 mg/dL (1.8-2.4)
[2024-08-09 13:51] LABS: CREATININE 1.2 mg/dL (0.55-1.3)
[2024-08-09 13:52] LABS: BILIRUBIN,TOTAL 1.3 mg/dL (0.2-1)
[2024-08-09] MEDS ORDERED: LACTULOSE 20 GM/30 ML UDC (FOR ORAL USE ONLY) ONE (14:05)
[2024-08-09] MEDS: LACTULOSE 20 GM/30 ML UDC (FOR ORAL USE ONLY) PO ONE (14:14)
[2024-08-09] MEDS: LACTATED RINGERS SOLUTION 1000 ML INFUS.BAG IV ONE (15:17)
[2024-08-09 17:08] LABS: LACTIC ACID 3.8 mmol/L (0.4-2.0)
[2024-08-09] MEDS ORDERED: ACETAMINOPHEN 325 MG TABLET (FP) PO PRN (22:30)
[2024-08-09] MEDS: LACTULOSE 20 GM/30 ML UDC (FOR ORAL USE ONLY) PO SCH (22:51)
[2024-08-09] MEDS: RIFAXIMIN 550 MG TABLET PO SCH (22:51)
[2024-08-09] MEDS: ACETAMINOPHEN 325 MG TABLET (FP) PO PRN (22:52)
[2024-08-09] MEDS: INSULIN ASPART SLIDING SCALE (NOVOLOG) 1 VIAL SQ SCH (22:53)
[2024-08-10 01:35] LABS: EPI CELLS 5 /uL (0-25.1); HYALINE CASTS 0 /uL (0-3.1); URINE APPEARANCE CLOUDY; URINE BACTERIA >9,000 /uL (0-1359); URINE BILIRUBIN NEGATIVE (NEGATIVE); URINE COLOR YELLOW; URINE GLUCOSE (UA) 3+ (NEGATIVE); URINE KETONE NEGATIVE (NEGATIVE); URINE LEUK ESTERASE TRACE (NEGATIVE); URINE NITRITE NEGATIVE (NEGATIVE); URINE PROTEIN NEGATIVE (NEGATIVE); URINE RBC 11 /uL (0-23.9); URINE WBC 50 /uL (0-25.8)
[2024-08-10] MEDS ORDERED: INSULIN (LEVEMIR) 100 UNITS/ML UNITS SQ ONE (07:48)
[2024-08-10 08:22] LABS: HEMATOCRIT 30.7 % (32.4-45.2); HEMOGLOBIN 10.1 GM/dL (10.7-15.3); MCH 28.3 pg (25.7-33.7); MCHC 32.9 g/dl (32.0-36.0); MEAN CELL VOLUME 86.2 fl (80-96); MEAN PLT VOLUME 7.9 fl (7.5-11.1); PLATELET COUNT 62 10^3/uL (134-434); RBC 3.56 M/mm3 (3.60-5.2); RDW 17.8 % (11.6-15.6); WHITE BLOOD COUNT 2.9 K/mm3 (4.0-10.0)
[2024-08-10 08:33] LABS: POTASSIUM 3.4 mmol/L (3.5-5.1)
[2024-08-10 08:38] LABS: CALCIUM 9.2 mg/dL (8.5-10.1)
[2024-08-10 08:39] LABS: BLOOD UREA NITROGEN 17.8 mg/dL (7-18)
[2024-08-10 08:42] LABS: CREATININE 0.8 mg/dL (0.55-1.3)
[2024-08-10] MEDS: FUROSEMIDE 20 MG TABLET (FP) PO SCH (10:30)
[2024-08-10] MEDS: SPIRONOLACTONE 25 MG TABLET PO SCH (10:30)
[2024-08-10] MEDS: PANTOPRAZOLE 40 MG TABLET PO SCH (10:31)
[2024-08-10] MEDS: POTASSIUM CHLORIDE TABS 20 MEQ TABLET.ER (FP) PO SCH (10:35)
[2024-08-10] MEDS: LACTULOSE 20 GM/30 ML UDC (FOR ORAL USE ONLY) PO SCH (15:34)
[2024-08-11 13:28] LABS: BASO % 0.9 % (0-2.0); EOS % 5.2 % (0-4.5); HEMOGLOBIN 11.9 GM/dL (10.7-15.3); LYMPH % 26.5 % (8-40); MCH 28.2 pg (25.7-33.7); MCHC 31.3 g/dl (32.0-36.0); MEAN PLT VOLUME 8.1 fl (7.5-11.1); NEUT % 59.4 % (42.8-82.8); PLATELET COUNT 100 10^3/uL (134-434); RBC 4.22 M/mm3 (3.60-5.2); RDW 24.1 % (11.6-15.6); WHITE BLOOD COUNT 5.5 K/mm3 (4.0-10.0)
[2024-08-11 13:36] LABS: INR 1.21 (0.83-1.09); PROTHROMBIN TIME (PATIENT) 13.6 SEC (9.7-13.0)
[2024-08-11 13:48] LABS: ANISOCYTOSIS 3+; MACROCYTOSIS 0
[2024-08-11 13:59] LABS: POTASSIUM 4.1 mmol/L (3.5-5.1)
[2024-08-11 14:03] LABS: CALCIUM 9.3 mg/dL (8.5-10.1)
[2024-08-11 14:05] LABS: ALBUMIN 3.3 g/dl (3.4-5.0)
[2024-08-11 14:06] LABS: BILIRUBIN,DIRECT 0.4 mg/dL (0.0-0.2); CREATININE 1.1 mg/dL (0.55-1.3)
[2024-08-11 14:08] LABS: BILIRUBIN,TOTAL 1.6 mg/dL (0.2-1); TOT PROT 7.1 g/dl (6.4-8.2)
[2024-08-12 06:44] VITALS: RESP 18
[2024-08-12 15:04] VITALS: BMI 24.6
[2024-08-13] MEDS: ACETAMINOPHEN 325 MG TABLET (FP) PO ONE ×2 (13:26→21:40)
[2024-08-14 07:27] VITALS: BP 109/66; PULSE 73; TEMP 98.4
[2024-08-14] MEDS: FUROSEMIDE 20 MG TABLET (FP) PO SCH (09:46)
[2024-08-14] MEDS: SPIRONOLACTONE 25 MG TABLET PO SCH (09:46)
== END 2024-08-14 10:48 | disposition home or self-care (01) | DRG 442 ==
LOC: JER 11:57 → JERBED 14:27 → J8W 17:23
PROVIDERS: ADMIT Internal Medicine; ATTEND Nurse Practitioner Family
DX: K76.82 Hepatic encephalopathy (principal); E87.20 Acidosis, unspecified; N39.0 Urinary tract infection, site not specified; E11.9 Type 2 diabetes mellitus without complications; I10 Essential (primary) hypertension; E78.5 Hyperlipidemia, unspecified; K74.60 Unspecified cirrhosis of liver; K75.81 Nonalcoholic steatohepatitis (NASH)
CPT/HCPCS: 0241U-QW; 36415; 70450-TC; 71045-TC-FY; 76705-TC; 80048; 80053; 80076; 81003; 82140; 82962; 83036; 83605; 83735; 84484; 85025; 85027; 85610; 85730; 87086; 87186; 93005; 93010; 97116-GP; 97161-GP; 99285-25